=== PATIENT | female | born 1950 | race Caucasian/White ===

== ENCOUNTER 2019-06-01 22:05 | Emergency (ER) | payer MEDICARE, OTHER ==
[~2019-06-01] VITALS: Ht 160 cm; Wt 90.7 kg
--- OUTSIDE RECORDS SUMMARY | 2019-06-01 22:08 | XMS REPORT | Continuity of Care Document ---
Author Author [employer] Address Unknown Phone Unavailable Care Team Providers Care Safety Counselor Name Role Phone [employer] Unavailable Unavailable Problems Problem Status Onset Date Classification Date Reported Comments Source Elevated blood-pressure reading without diagnosis of hypertension Active Problem 05/26/2019 [facility] Meniere's disease Active Problem 05/26/2019 [facility] Fluttering heart Active Problem 05/26/2019 [facility] Hypothyroidism Active Problem 05/26/2019 [facility] Anxiety Active Problem 05/26/2019 [facility] Depression Active Problem 05/26/2019 [facility] Hyperlipidemia Active Problem 05/26/2019 [facility] Prediabetes Active Problem 05/26/2019 [facility] Insomnia Active Problem 05/26/2019 [facility] Abnormal EKG Active Diagnosis 03/12/2017 [facility] BMI 36.0-36.9,adult Active Problem 05/26/2019 [facility] Cough Active Diagnosis 08/07/2018 [facility] Bronchitis Active Diagnosis 08/07/2018 [facility] Hyperlipidemia Active Problem 01/08/2016 [facility] Insomnia Active Problem 01/08/2016 [facility] Hypothyroidism Active Problem 01/08/2016 [facility] Menieres disease Active Problem 07/02/2016 [facility] Obesity Active Diagnosis 06/09/2015 [facility] Encounter for screening mammogram for malignant neoplasm of breast Active Diagnosis 11/23/2014 [facility] Elevated BP Active Problem 07/02/2016 [facility] Prediabetes Active Problem 01/08/2016 [facility] Medications Medication Details Route Status Patient Instructions Ordering Provider Order Date Source Lipitor 1 tablet Orally Active 10 mg Orally Once a day [place] 09/29/2018 [facility] Synthroid 1 tablet on an empty stomach in the morning Orally Active 100 MCG Orally Once a day [place] 09/29/2018 [facility] Bromfed DM 10 ml as needed Orally Active 30-2-10 MG/5ML Orally every 4 hrs [place] 08/10/2018 [facility] Ceftin 1 tablet Orally Active 250 MG Orally Twice a day [place] 07/23/2018 [facility] ProAir HFA 2 puffs as needed Inhalation Active 108 (90 Base) MCG/ACT Inhalation every 6 hrs [place] 07/23/2018 [facility] Valium 1 tablet as needed Orally Active 5 MG Orally Once a day [place] 10/06/2017 [facility] Triamterene-HCTZ 1 tablet in the morning Orally Active 25-37.5 MG Orally Once a day [place] 03/12/2017 [facility] Bentyl 1 capsule Orally Active 10 mg Orally four times a day (qid) Uma 11/13/2015 [facility] Belviq 1 tablet Orally Active 10 mg Orally Twice a day Liz 06/07/2015 [facility] Pravastatin Sodium 1 tablet Orally Active 40 mg Orally Once a day Geovanna 07/05/2014 [facility] Synthroid 1 tablet on an empty stomach in the morning Orally Active 75 MCG Orally Once a day [place] 07/05/2014 [facility] Analpram Advanced as directed Combination Active 2.5-1 % Combination as directed Liz 07/13/2013 [facility] Synthroid 1 tablet Orally No Longer Active 50 MCG Orally Once a day MUST SEE DOCTOR BEFORE NEXT REFILL Geovanna 07/12/2013 [facility] Escitalopram Oxalate 1 tablet by mouth Active 10 mg by mouth Once a day Sai 05/06/2013 [facility] Zolpidem Tartrate ER 1 tablet Orally Active 12.5 MG Orally once every night as needed [facility] Odom 03/15/2013 [facility] Zolpidem Tartrate ER 1 tablet Orally Active 12.5 MG Orally q hs prn LAST REFILL, NEEDS TO BE SEEN Jose Maria 03/15/2013 [facility] Synthroid 1 tablet Orally Active 75 MCG Orally Once a day Sai [facility] Pravastatin Sodium 1 tablet Orally Active 40 mg Orally Once a day Sai [facility] Escitalopram Oxalate 1 tablet orally Active 10 mg orally Once a day Jose Maria [facility] Synthroid 1 tablet Orally Active 75 MCG Orally Once a day Jose Maria [facility] Synthroid 1 tablet on an empty stomach in the morning Orally Active 100 MCG Orally Once a day [place] [facility] Pravastatin Sodium 1 tablet Orally Active 40 mg Orally Once a day Jose Maria [facility] Pravastatin Sodium TAKE 1 TABLET ONCE A DAY ORALLY NA No Longer Active 20 MG Geovanna [facility] Lexapro TAKE 1-2 TABLETS BY MOUTH EVERYDAY NA Active 10 MG Ataartjyothi [facility] Allergies, Adverse Reactions, Alerts Substance Category Reaction Severity Reaction type Status Date Reported Comments Source N.K.D.A. Adverse Reaction Info Not Available Adverse Reaction Active 07/23/2018 [facility] Immunizations No Data Provided for This Section Results No Data Provided for This Section Pathology Reports No Data Provided for This Section Diagnostic Reports No Data Provided for This Section Consultation Notes No Data Provided for This Section Discharge Summaries No Data Provided for This Section History and Physicals No Data Provided for This Section Vital Signs Vital Sign Value Date Comments Source Weight 205 07/23/2018 [facility] Height 63 07/23/2018 [facility] Temperature Oral (F) 98.1 F 07/23/2018 [facility] Heart Rate 76 07/23/2018 [facility] Diastolic (mm Hg) 80 07/23/2018 [facility] Systolic (mm Hg) 126 07/23/2018 [facility] Weight 186 03/10/2017 [facility] Height 63 03/10/2017 [facility] Heart Rate 82 03/10/2017 [facility] Diastolic (mm Hg) 88 03/10/2017 [facility] Systolic (mm Hg) 130 03/10/2017 [facility] Weight 229 03/25/2016 [facility] Height 63 03/25/2016 [facility] Heart Rate 66 03/25/2016 [facility] Diastolic (mm Hg) 70 03/25/2016 [facility] Systolic (mm Hg) 122 03/25/2016 [facility] Weight 222 06/07/2015 [facility] Height 63 06/07/2015 [facility] Heart Rate 64 06/07/2015 [facility] Diastolic (mm Hg) 80 06/07/2015 [facility] Systolic (mm Hg) 126 06/07/2015 [facility] Weight 219 06/21/2014 [facility] Height 63 06/21/2014 [facility] Heart Rate 63 06/21/2014 [facility] Diastolic (mm Hg) 78 06/21/2014 [facility] Systolic (mm Hg) 124 06/21/2014 [facility] Encounters Location Location Details Encounter Type Encounter Number Reason For Visit Attending Provider ADM Date DC Date Status Source [facility] med refill [id number] 06/21/2014 06/21/2014 [facility] med refill [id number] 06/21/2014 06/21/2014 [facility] med refill [id number] 06/21/2014 06/21/2014 [facility] med refill [id number] 06/21/2014 06/21/2014 [facility] med refill [id number] 06/21/2014 06/21/2014 [facility] med refill [id number] 06/21/2014 06/21/2014 [facility] med refill [id number] 06/21/2014 06/21/2014 [facility] med refill [id number] 06/21/2014 06/21/2014 [facility] med refill [id number] 06/21/2014 06/21/2014 [facility] med refill [id number] 06/21/2014 06/21/2014 [facility] med refill [id number] 06/21/2014 06/21/2014 [facility] med refill [id number] 06/21/2014 06/21/2014 [facility] med refill [id number] 06/21/2014 06/21/2014 [facility] med refill [id number] 06/21/2014 06/21/2014 [facility] med refill [id number] 06/21/2014 06/21/2014 [facility] med refill [id number] 06/21/2014 06/21/2014 [facility] Test results [id number] 07/05/2014 07/05/2014 [facility] Test results [id number] 07/05/2014 07/05/2014 [facility] Test results [id number] 07/05/2014 07/05/2014 [facility] Test results [id number] 07/05/2014 07/05/2014 [facility] Test results [id number] 07/05/2014 07/05/2014 [facility] Test results [id number] 07/05/2014 07/05/2014 [facility] Test results [id number] 07/05/2014 07/05/2014 [facility] Test results [id number] 07/05/2014 07/05/2014 [facility] Test results [id number] 07/05/2014 07/05/2014 [facility] Test results [id number] 07/05/2014 07/05/2014 [facility] Test results [id number] 07/05/2014 07/05/2014 [facility] Test results [id number] 07/05/2014 07/05/2014 [facility] Test results [id number] 07/05/2014 07/05/2014 [facility] Test results [id number] 07/05/2014 07/05/2014 [facility] Test results [id number] 07/05/2014 07/05/2014 [facility] Test results [id number] 07/05/2014 07/05/2014 [facility] Unknown [id number] 09/21/2014 09/21/2014 [facility] Unknown [id number] 09/21/2014 09/21/2014 [facility] Unknown [id number] 09/21/2014 09/21/2014 [facility] Unknown [id number] 09/21/2014 09/21/2014 [facility] Unknown [id number] 09/21/2014 09/21/2014 [facility] Unknown [id number] 09/21/2014 09/21/2014 [facility] Unknown [id number] 09/21/2014 09/21/2014 [facility] Unknown [id number] 09/21/2014 09/21/2014 [facility] Unknown [id number] 09/21/2014 09/21/2014 [facility] Unknown [id number] 09/21/2014 09/21/2014 [facility] Unknown [id number] 09/21/2014 09/21/2014 [facility] Unknown [id number] 09/21/2014 09/21/2014 [facility] Unknown [id number] 09/21/2014 09/21/2014 [facility] Unknown [id number] 09/21/2014 09/21/2014 [facility] Unknown [id number] 11/10/2014 11/10/2014 [facility] Unknown [id number] 11/10/2014 11/10/2014 [facility] Unknown [id number] 11/10/2014 11/10/2014 [facility] Unknown [id number] 11/10/2014 11/10/2014 [facility] Unknown [id number] 11/10/2014 11/10/2014 [facility] Unknown [id number] 11/10/2014 11/10/2014 [facility] Unknown [id number] 11/10/2014 11/10/2014 [facility] Unknown [id number] 11/10/2014 11/10/2014 [facility] Unknown [id number] 11/10/2014 11/10/2014 [facility] Unknown [id number] 11/10/2014 11/10/2014 [facility] Unknown [id number] 11/10/2014 11/10/2014 [facility] Unknown [id number] 11/10/2014 11/10/2014 [facility] Unknown [id number] 11/10/2014 11/10/2014 [facility] Refill [id number] 12/19/2014 12/19/2014 [facility] Refill [id number] 12/19/2014 12/19/2014 [facility] Refill [id number] 12/19/2014 12/19/2014 [facility] Refill [id number] 12/19/2014 12/19/2014 [facility] Refill [id number] 12/19/2014 12/19/2014 [facility] Refill [id number] 12/19/2014 12/19/2014 [facility] Refill [id number] 12/19/2014 12/19/2014 [facility] Refill [id number] 12/19/2014 12/19/2014 [facility] Refill [id number] 12/19/2014 12/19/2014 [facility] Refill [id number] 12/19/2014 12/19/2014 [facility] Refill [id number] 12/19/2014 12/19/2014 [facility] Refill [id number] 12/19/2014 12/19/2014 [facility] Unknown [id number] 03/23/2015 03/23/2015 [facility] Unknown [id number] 03/23/2015 03/23/2015 [facility] Unknown [id number] 03/23/2015 03/23/2015 [facility] Unknown [id number] 03/23/2015 03/23/2015 [facility] Unknown [id number] 03/23/2015 03/23/2015 [facility] Unknown [id number] 03/23/2015 03/23/2015 [facility] Unknown [id number] 03/23/2015 03/23/2015 [facility] Unknown [id number] 03/23/2015 03/23/2015 [facility] Unknown [id number] 03/23/2015 03/23/2015 [facility] Unknown [id number] 03/23/2015 03/23/2015 [facility] Unknown [id number] 03/23/2015 03/23/2015 [facility] med refill [id number] 06/07/2015 06/07/2015 [facility] med refill [id number] 06/07/2015 06/07/2015 [facility] med refill [id number] 06/07/2015 06/07/2015 [facility] med refill [id number] 06/07/2015 06/07/2015 [facility] med refill [id number] 06/07/2015 06/07/2015 [facility] med refill [id number] 06/07/2015 06/07/2015 [facility] med refill [id number] 06/07/2015 06/07/2015 [facility] med refill [id number] 06/07/2015 06/07/2015 [facility] [facility] med refill [id number] 06/07/2015 06/07/2015 [facility] med refill [id number] 06/07/2015 06/07/2015 [facility] med refill [id number] 06/07/2015 06/07/2015 [facility] Refill [id number] 06/18/2015 06/18/2015 [facility] Refill [id number] 06/18/2015 06/18/2015 [facility] Refill [id number] 06/18/2015 06/18/2015 [facility] Refill [id number] 06/18/2015 06/18/2015 [facility] Refill [id number] 06/18/2015 06/18/2015 [facility] Refill [id number] 06/18/2015 06/18/2015 [facility] Refill [id number] 06/18/2015 06/18/2015 [facility] Refill [id number] 06/18/2015 06/18/2015 [facility] Refill [id number] 06/18/2015 06/18/2015 [facility] Refill [id number] 06/18/2015 06/18/2015 [facility] LAB RESULTS [id number] 08/13/2015 08/13/2015 [facility] LAB RESULTS [id number] 08/13/2015 08/13/2015 [facility] LAB RESULTS [id number] 08/13/2015 08/13/2015 [facility] LAB RESULTS [id number] 08/13/2015 08/13/2015 [facility] LAB RESULTS [id number] 08/13/2015 08/13/2015 [facility] LAB RESULTS [id number] 08/13/2015 08/13/2015 [facility] LAB RESULTS [id number] 08/13/2015 08/13/2015 [facility] LAB RESULTS [id number] 08/13/2015 08/13/2015 [facility] LAB RESULTS [id number] 08/13/2015 08/13/2015 [facility] Refill [id number] 08/14/2015 08/14/2015 [facility] Refill [id number] 08/14/2015 08/14/2015 [facility] Refill [id number] 08/14/2015 08/14/2015 [facility] Refill [id number] 08/14/2015 08/14/2015 [facility] Refill [id number] 08/14/2015 08/14/2015 [facility] Refill [id number] 08/14/2015 08/14/2015 [facility] Refill [id number] 08/14/2015 08/14/2015 [facility] Refill [id number] 08/14/2015 08/14/2015 [facility] Refill [id number] 08/14/2015 08/14/2015 [facility] Unknown [id number] 08/14/2015 08/14/2015 [facility] Unknown [id number] 08/14/2015 08/14/2015 [facility] Unknown [id number] 08/14/2015 08/14/2015 [facility] Unknown [id number] 08/14/2015 08/14/2015 [facility] Unknown [id number] 08/14/2015 08/14/2015 [facility] Unknown [id number] 08/14/2015 08/14/2015 [facility] Unknown [id number] 08/14/2015 08/14/2015 [facility] Unknown [id number] 08/14/2015 08/14/2015 [facility] Unknown [id number] 08/14/2015 08/14/2015 [facility] HOYT (KELLY)-UA [id number] 08/23/2015 08/23/2015 [facility] NATHAN)-UA [id number] 08/23/2015 08/23/2015 [facility] NATHAN)-UA [id number] 08/23/2015 08/23/2015 [facility] NATHAN)-UA [id number] 08/23/2015 08/23/2015 [facility] NATHAN)-UA [id number] 08/23/2015 08/23/2015 [facility] NATHAN)-UA [id number] 08/23/2015 08/23/2015 [facility] NATHAN)-UA [id number] 08/23/2015 08/23/2015 [facility] NATHAN)-UA [id number] 08/23/2015 08/23/2015 [facility] NATHAN)-UA [id number] 08/23/2015 08/23/2015 [facility] Refill [id number] 09/10/2015 09/10/2015 [facility] Refill [id number] 09/10/2015 09/10/2015 [facility] Refill [id number] 09/10/2015 09/10/2015 [facility] Refill [id number] 09/10/2015 09/10/2015 [facility] Refill [id number] 09/10/2015 09/10/2015 [facility] Refill [id number] 09/10/2015 09/10/2015 [facility] Refill [id number] 09/10/2015 09/10/2015 [facility] Refill [id number] 09/10/2015 09/10/2015 [facility] Refill [id number] 09/10/2015 09/10/2015 [facility] Unknown [id number] 09/11/2015 09/11/2015 [facility] Unknown [id number] 09/11/2015 09/11/2015 [facility] Unknown [id number] 09/11/2015 09/11/2015 [facility] Unknown [id number] 09/11/2015 09/11/2015 [facility] Unknown [id number] 09/11/2015 09/11/2015 [facility] Unknown [id number] 09/11/2015 09/11/2015 [facility] Unknown [id number] 09/11/2015 09/11/2015 [facility] Unknown [id number] 09/11/2015 09/11/2015 [facility] Unknown [id number] 09/11/2015 09/11/2015 [facility] Unknown [id number] 10/08/2015 10/08/2015 [facility] Unknown [id number] 10/08/2015 10/08/2015 [facility] Unknown [id number] 10/08/2015 10/08/2015 [facility] Unknown [id number] 10/08/2015 10/08/2015 [facility] Unknown [id number] 10/08/2015 10/08/2015 [facility] Unknown [id number] 10/08/2015 10/08/2015 [facility] Unknown [id number] 10/08/2015 10/08/2015 [facility] Unknown [id number] 10/08/2015 10/08/2015 [facility] Unknown [id number] 10/08/2015 10/08/2015 [facility] Unknown [id number] 10/09/2015 10/09/2015 [facility] Unknown [id number] 10/09/2015 10/09/2015 [facility] Unknown [id number] 10/09/2015 10/09/2015 [facility] Unknown [id number] 10/09/2015 10/09/2015 [facility] Unknown [id number] 10/09/2015 10/09/2015 [facility] Unknown [id number] 10/09/2015 10/09/2015 [facility] Unknown [id number] 10/09/2015 10/09/2015 [facility] Unknown [id number] 10/09/2015 10/09/2015 [facility] Unknown [id number] 10/09/2015 10/09/2015 [facility] Unknown [id number] 11/13/2015 11/13/2015 [facility] Unknown [id number] 11/13/2015 11/13/2015 [facility] Unknown [id number] 11/13/2015 11/13/2015 [facility] Unknown [id number] 11/13/2015 11/13/2015 [facility] Unknown [id number] 11/13/2015 11/13/2015 [facility] Unknown [id number] 11/13/2015 11/13/2015 [facility] Unknown [id number] 11/13/2015 11/13/2015 [facility] [place] [id number] 01/07/2016 01/07/2016 [facility] [id number] 01/07/2016 01/07/2016 [facility] [id number] 01/07/2016 01/07/2016 [facility] [id number] 01/07/2016 01/07/2016 [facility] [id number] 01/07/2016 01/07/2016 [facility] [id number] 01/07/2016 01/07/2016 [facility] medication [id number] 03/25/2016 03/25/2016 [facility] medication [id number] 03/25/2016 03/25/2016 [facility] medication [id number] 03/25/2016 03/25/2016 [facility] medication [id number] 03/25/2016 03/25/2016 [facility] medication [id number] 03/25/2016 03/25/2016 [facility] APPROVED- Rx Escitalopram 10 mg [id number] 04/18/2016 04/18/2016 [facility]- Rx Escitalopram 10 mg [id number] 04/18/2016 04/18/2016 [facility]- Rx Escitalopram 10 mg [id number] 04/18/2016 04/18/2016 [facility]- Rx Escitalopram 10 mg [id number] 04/18/2016 04/18/2016 [facility] Refill [id number] 06/19/2016 06/19/2016 [facility] Refill [id number] 06/19/2016 06/19/2016 [facility] Refill [id number] 06/19/2016 06/19/2016 [facility] Refill [id number] 06/24/2016 06/24/2016 [facility] Refill [id number] 06/24/2016 06/24/2016 [facility] Rx Zolpidem [id number] 06/30/2016 06/30/2016 [facility] Procedures No Data Provided for This Section Assessment and Plan No Data Provided for This Section Plan of Care No Data Provided for This Section Social History Social History Date Source Social History ElementQualifiersDate Reported Occupation: . Retired March 25, 2016 Last Colonoscopy: . never March 25, 2016 Depression Screening: . negative March 25, 2016 Ethnicity . Status , Is cymro your primary language? Yes March 25, 2016 Fall Risk: . none in the past year March 25, 2016 Where or with whom do you live ? . with Spouse March 25, 2016 children . 2 March 25, 2016 Flu Vaccine: . no March 25, 2016 Tobacco Use: . Are you a: never smoker March 25, 2016 Use of recreational / street drugs? . Answer: No March 25, 2016 Marital Status: . Matt March 25, 2016 Last Bone Density: . 2011 March 25, 2016 Pneumoccocal Vaccine . No March 25, 2016 Do you drink alcohol? . Status: No March 25, 2016 03/25/2016 [facility] Family History Value Date Source QualifierDescriptionCommentDate Reported Maternal Grandmother Comment not available March 25, 2016 Paternal Grandmother Comment not available March 25, 2016 Siblings alive Comment not available March 25, 2016 Maternal Grandfather Comment not available March 25, 2016 Children alive Comment not available March 25, 2016 Father alive hypertension, myocardial infarction March 25, 2016 Paternal Grandfather Comment not available March 25, 2016 Mother hypertension, myocardial infarction March 25, 2016 Other: Comment not available March 25, 2016 04/01/2016 [facility] Advance Directives No Data Provided for This Section Functional Status No Data Provided for This Section
--- OUTSIDE RECORDS SUMMARY | 2019-06-01 22:09 | XMS REPORT ---
Author Author Carina Longo Organization [employer] Address Unknown Phone Unavailable Care Team Providers Care Station Supervisor Name Role Phone Carina Longo CP Unavailable Allergies No Known Allergies Problems Problem Type Condition Code Onset Dates Condition Status Problem Meniere's disease H81.09 Active Problem Hyperlipidemia E78.5 Active Problem Elevated blood-pressure reading without diagnosis of hypertension R03.0 Active Problem Fluttering heart I49.8 Active Problem Anxiety F41.9 Active Problem BMI 36.0-36.9,adult Z68.36 Active Problem Insomnia G47.00 Active Problem Hypothyroidism E03.9 Active Problem Prediabetes R73.09 Active Problem Depression F32.9 Active Medications Medication Code System Code Instructions Start Date End Date Status Dosage Synthroid [facility] 80675005028 100 MCG Orally Once a day Active 1 tablet on an empty stomach in the morning Results No Known Results Summary Purpose [employer] Submission
--- OUTSIDE RECORDS SUMMARY | 2019-06-01 22:09 | XMS REPORT ---
Author Author Carina Longo [facility] [employer] Address Unknown Phone Unavailable Care Team Providers Care Ground Support Equipment Assembler Name Role Phone Carina Longo CP Unavailable Allergies No Known Allergies Problems Problem Type Condition Code Onset Dates Condition Status Problem Elevated blood-pressure reading without diagnosis of hypertension R03.0 Active Problem Meniere's disease H81.09 Active Problem Fluttering heart I49.8 Active Problem Depression F32.9 Active Problem Anxiety F41.9 Active Problem Prediabetes R73.09 Active Problem Hyperlipidemia E78.5 Active Problem Insomnia G47.00 Active Problem Hypothyroidism E03.9 Active Medications Medication Code System Code Instructions Start Date End Date Status Dosage Valium [facility] [id number] 5 MG Orally Once a day Oct 06, 2017 Active 1 tablet as needed Results No Known Results Summary Purpose [employer] Submission
--- OUTSIDE RECORDS SUMMARY | 2019-06-01 22:09 | XMS REPORT ---
Author Author Mitch Moise Organization eClinicalWorks Address Unknown Phone Unavailable Care Team Providers Care Wireline Operator Name Role Phone Mitch Moise CP Unavailable Allergies No Known Allergies Problems Problem Type Condition Code Onset Dates Condition Status Problem Meniere's disease H81.09 Active Problem Hyperlipidemia E78.5 Active Problem Elevated blood-pressure reading without diagnosis of hypertension R03.0 Active Assessment Insomnia G47.00 Active Problem Fluttering heart I49.8 Active Problem Anxiety F41.9 Active Problem BMI 36.0-36.9,adult Z68.36 Active Problem Insomnia G47.00 Active Problem Hypothyroidism E03.9 Active Problem Prediabetes R73.09 Active Problem Depression F32.9 Active Medications Medication Code System Code Instructions Start Date End Date Status Dosage Zolpidem Tartrate ER [facility] 31329468645 12.5 MG Orally Once a day PRN March 15, 2013 Active 1 tablet Results No Known Results Summary Purpose eClinicalWorks Submission
--- OUTSIDE RECORDS SUMMARY | 2019-06-01 22:09 | XMS REPORT ---
Author Author Carina Longo [facility] eClinicalWorks Address Unknown Phone Unavailable Care Team Providers Care Adding Machine Mechanic Name Role Phone Carina Lnogo CP Unavailable Allergies No Known Allergies Problems Problem Type Condition Code Onset Dates Condition Status Assessment Insomnia G47.00 Active Problem Elevated blood-pressure reading without diagnosis of hypertension R03.0 Active Problem Meniere's disease H81.09 Active Problem Fluttering heart I49.8 Active Problem Depression F32.9 Active Problem Anxiety F41.9 Active Problem Prediabetes R73.09 Active Problem Hyperlipidemia E78.5 Active Problem Insomnia G47.00 Active Problem Hypothyroidism E03.9 Active Medications Medication Code System Code Instructions Start Date End Date Status Dosage Zolpidem Tartrate ER [facility] 56655929442 12.5 MG Orally qhs prn LAST REFILL, MUST SEE DOCTOR March 15, 2013 Active 1 tablet Results No Known Results Summary Purpose eClinicalWorks Submission
--- OUTSIDE RECORDS SUMMARY | 2019-06-01 22:09 | XMS REPORT ---
Author Author Carina Longo [facility] eClinicalWorks Address Unknown Phone Unavailable Care Team Providers Care Meteorology Instructor Name Role Phone Carina Longo CP Unavailable [...] G47.00 Active Problem Hypothyroidism E03.9 Active Medications No Known Medications Results No Known Results Summary Purpose eClinicalWorks Submission
--- OUTSIDE RECORDS SUMMARY | 2019-06-01 22:09 | XMS REPORT ---
Author Author Jami Gibbs [facility] eClinicalWorks Address Unknown Phone Unavailable Care Team Providers Care Splitting Machine Operator Helper Name Role Phone Jami Gibbs CP Unavailable Allergies No Known Allergies Problems Problem Type Condition Code Onset Dates Condition Status Problem Elevated blood-pressure reading without diagnosis of hypertension R03.0 Active Problem Meniere's disease H81.09 Active Problem Fluttering heart I49.8 Active Problem Hypothyroidism E03.9 Active Problem Anxiety F41.9 Active Problem Depression F32.9 Active Problem Hyperlipidemia E78.5 Active Problem Prediabetes R73.09 Active Problem Insomnia G47.00 Active Medications No Known Medications Results No Known Results Summary Purpose eClinicalWorks Submission
--- OUTSIDE RECORDS SUMMARY | 2019-06-01 22:09 | XMS REPORT ---
Author Author Carina Longo [facility] eClinicalWorks Address Unknown Phone Unavailable Care Team Providers Care Supervisor Cigarette Making Department Name Role Phone Carina Longo CP Unavailable [...] Instructions Start Date End Date Status Dosage Escitalopram Oxalate [facility] 24585776262 10 mg orally Once a day Active 1 tablet Results No Known Results Summary Purpose eClinicalWorks Submission
--- OUTSIDE RECORDS SUMMARY | 2019-06-01 22:09 | XMS REPORT ---
Author Author Carina Longo [facility] eClinicalWorks Address Unknown Phone Unavailable Care Team Providers Care Veterinary Anatomist Name Role Phone Carina Longo CP Unavailable Allergies No Known Allergies Problems Problem Type Condition Code Onset Dates Condition Status Assessment Hypothyroidism E03.9 Active Problem Elevated blood-pressure reading without diagnosis of hypertension R03.0 Active Problem Meniere's disease H81.09 Active Problem Fluttering heart I49.8 Active Problem Depression F32.9 Active Problem Anxiety F41.9 Active Problem Prediabetes R73.09 Active Problem Hyperlipidemia E78.5 Active Problem Insomnia G47.00 Active Problem Hypothyroidism E03.9 Active Medications Medication Code System Code Instructions Start Date End Date Status Dosage Synthroid [facility] 39151343926 75 MCG Orally Once a day Active 1 tablet Results No Known Results Summary Purpose eClinicalWorks Submission
--- OUTSIDE RECORDS SUMMARY | 2019-06-01 22:09 | XMS REPORT ---
Author Author Carina Longo [facility] eClinicalWorks Address Unknown Phone Unavailable Care Team Providers Care Elementary Spanish Teacher Name Role Phone Carina Longo CP Unavailable [...] R73.09 Active Problem Insomnia G47.00 Active Medications Medication Code System Code Instructions Start Date End Date Status Dosage Zolpidem Tartrate [facility] [address]-17 12.5 MG Orally once every night as needed March 15, 2013 Active 1 tablet Results No Known Results Summary Purpose eClinicalWorks Submission
--- OUTSIDE RECORDS SUMMARY | 2019-06-01 22:09 | XMS REPORT ---
Author Author Jami Gibbs [facility] eClinicalWorks Address Unknown Phone Unavailable Care Team Providers Care Cement Side Laster Name Role Phone Jami Gibbs CP Unavailable [...] Instructions Start Date End Date Status Dosage Triamterene-HCTZ [facility] [address]-29 25-37.5 MG Orally Once a day March 12, 2017 Active 1 tablet in the morning Results No Known Results Summary Purpose eClinicalWorks Submission
--- OUTSIDE RECORDS SUMMARY | 2019-06-01 22:09 | XMS REPORT ---
Author Author Jami Gibbs [facility] eClinicalWorks Address Unknown Phone Unavailable Care Team Providers Care Insole Presser Name Role Phone Jami Gibbs CP Unavailable [...] Start Date End Date Status Dosage Triamterene-HCTZ [facility] [address]-16 25-37.5 MG Orally Once a day March 12, 2017 Active 1 tablet in the morning Results No Known Results Summary Purpose eClinicalWorks Submission
--- OUTSIDE RECORDS SUMMARY | 2019-06-01 22:09 | XMS REPORT ---
Author Author Mitch Moise Organization eClinicalWorks Address Unknown Phone Unavailable Care Team Providers Care Research Manager Name Role Phone Mitch Moise CP Unavailable [...] Instructions Start Date End Date Status Dosage Lipitor [facility] 30631491080 10 mg Orally Once a day Sep 29, 2018 Active 1 tablet Results No Known Results Summary Purpose eClinicalWorks Submission
--- OUTSIDE RECORDS SUMMARY | 2019-06-01 22:10 | XMS REPORT ---
Author Author Mitch Moise [facility] eClinicalWorks Address Unknown Phone Unavailable Care Team Providers Care Food Order Delivery Runner Name Role Phone Mitch Moise CP Unavailable Encounters Encounter Location Date Unknown [facility] Nov 10, 2014 Refill [facility] Dec 19, 2014 Unknown [facility] March 23, 2015 med refill [facility] June 07, 2015 med refill [facility] June 21, 2014 Test results [facility] Jul 05, 2014 Unknown [facility] Sep 21, 2014 Refill [facility] Aug 14, 2015 Refill [facility] June 18, 2015 LAB RESULTS [facility] Aug 13, 2015 Unknown [facility] Nov 13, 2015 RF [facility] Jan 07, 2016 Unknown [facility] Oct 08, 2015 Unknown [facility] Oct 09, 2015 Unknown [facility] Sep 11, 2015 Refill [facility] Sep 10, 2015 Unknown [facility] Aug 14, 2015 NV(VANGIE)-UA [facility] Aug 23, 2015 Problems Problem Type Condition ICD-9 Code Onset Dates Condition Status Problem Elevated BP 796.2 Active Problem Hypothyroidism 244.9 Active Problem Hyperlipidemia E78.5 Active Problem Menieres disease 386.00 Active Problem Prediabetes 790.29 Active Problem Hyperlipidemia 272.4 Active Problem Insomnia 780.52 Active Medications Medication Code System Code Instructions Start Date End Date Status Dosage Escitalopram Oxalate [facility] [address]-58 10 mg by mouth Once a day May 06, 2013 Active take 1-2 tablet by mouth every day Zolpidem Tartrate ER [facility] [address]-53 12.5 MG Orally once every night as needed March 15, 2013 Active 1 tablet Social History Social History Element Qualifiers Date Reported Occupation: . Retired Aug 23, 2015 Last Colonoscopy: . never Aug 23, 2015 Depression Screening: . negative 06/07/15 Aug 23, 2015 Ethnicity . Status , Is solomon islander your primary language? Yes Aug 23, 2015 Fall Risk: . none in the past year Aug 23, 2015 Where or with whom do you live ? . with Spouse Aug 23, 2015 children . 2 Aug 23, 2015 Flu Vaccine: . no Aug 23, 2015 Tobacco Use: . Are you a: never smoker Aug 23, 2015 Use of recreational / street drugs? . Answer: No Aug 23, 2015 Marital Status: . Matt Aug 23, 2015 Last Bone Density: . 2010Aug 23, 2015 Pneumoccocal Vaccine . No Aug 23, 2015 Do you drink alcohol? . Status: No Aug 23, 2015 Summary Purpose eClinicalWorks Submission
--- OUTSIDE RECORDS SUMMARY | 2019-06-01 22:10 | XMS REPORT ---
Author Author Raymond Hill Organization eClinicalWorks Address Unknown Phone Unavailable Care Team Providers Care Regional Forester Name Role Phone Raymond Hill CP Unavailable Encounters Encounter Location Date Unknown [facility] Nov 10, 2014 Refill [facility] Dec 19, 2014 med refill [facility] June 21, 2014 Test results [facility] Jul 05, 2014 Unknown [facility] Sep 21, 2014 Social History Social History Element Qualifiers Date Reported Ethnicity . Status , Is scottish your primary language? Yes June 21, 2014 Where or with whom do you live ? . with Spouse June 21, 2014 children . 2 June 21, 2014 Tobacco Use: . Are you a: never smoker June 21, 2014 Use of recreational / street drugs? . Answer: No June 21, 2014 Marital Status: . Matt June 21, 2014 Do you drink alcohol? . Status: No June 21, 2014 Occupation: . Retired June 21, 2014 Summary Purpose eClinicalWorks Submission
--- OUTSIDE RECORDS SUMMARY | 2019-06-01 22:10 | XMS REPORT ---
Author Author Raghavendra Finney [facility] eClinicalWorks Address Unknown Phone Unavailable Care Team Providers Care Geochemical Laboratory Technician Name Role Phone Raghavendra Finney Unavailable Encounters Encounter Location Date Unknown [facility] Nov 10, 2014 med refill [facility] June 21, 2014 Test results [facility] Jul 05, 2014 Unknown [facility] Sep 21, 2014 Problems Problem Type Condition ICD-9 Code Onset Dates Condition Status Problem Hyperlipidemia 272.4 Active Problem Insomnia 780.52 Active Problem Hypothyroidism 244.9 Active Problem Menieres disease 386.00 Active Assessment Encounter for screening mammogram for malignant neoplasm of breast V76.12 Active Social History Social History Element Qualifiers Date Reported Ethnicity . Status , Is armenian your primary language? Yes June 21, 2014 [...]
--- OUTSIDE RECORDS SUMMARY | 2019-06-01 22:10 | XMS REPORT ---
Author Author Mitch Moise Organization eClinicalWorks Address Unknown Phone Unavailable Care Team Providers Care Repair Tech Name Role Phone Mitch Moise CP Unavailable Allergies No Known Allergies Problems Problem Type Condition Code Onset Dates Condition Status Problem Meniere's disease H81.09 Active Problem Hyperlipidemia E78.5 Active Problem Elevated blood-pressure reading without diagnosis of hypertension R03.0 Active Assessment Hyperlipidemia E78.5 Active Assessment Hypothyroidism E03.9 Active Problem Fluttering heart I49.8 Active Problem Anxiety F41.9 Active Problem BMI 36.0-36.9,adult Z68.36 Active Problem Insomnia G47.00 Active Problem Hypothyroidism E03.9 Active Problem Prediabetes R73.09 Active Problem Depression F32.9 Active Medications Medication Code System Code Instructions Start Date End Date Status Dosage Synthroid NDC 03190815836 100 MCG Orally Once a day Sep 29, 2018 Active 1 tablet on an empty stomach in the morning Lipitor ND 19278982076 10 mg Orally Once a day Sep 29, 2018 Active 1 tablet Synthroid NDC 63703639883 75 MCG Orally Once a day Inactive 1 tablet Results No Known Results Summary Purpose eClinicalWorks Submission
--- OUTSIDE RECORDS SUMMARY | 2019-06-01 22:10 | XMS REPORT ---
Author Author Mitch Moise Organization eClinicalWorks Address Unknown Phone Unavailable Care Team Providers Care Inpatient Services Director Name Role Phone Mitch Moise CP Unavailable [...] End Date Status Dosage Zolpidem Tartrate ER [facility] 99548208009 12.5 MG Orally q hs prn LAST REFILL, NEEDS TO BE SEEN March 15, 2013 Active 1 tablet Results No Known Results Summary Purpose eClinicalWorks Submission
--- OUTSIDE RECORDS SUMMARY | 2019-06-01 22:10 | XMS REPORT ---
Author Author Raymond Hill [facility] eClinicalWorks Address Unknown Phone Unavailable Care Team Providers Care Blower And Compressor Assembler Name Role Phone Raymond Hill CP Unavailable Allergies, Adverse Reactions, Alerts Substance Reaction Event Type N.K.D.A. Info Not Available Non Drug Allergy Encounters Encounter Location Date Unknown [facility] Nov 10, 2014 Refill [facility] Dec 19, 2014 Unknown [facility] March 23, 2015 med refill [facility] June 07, 2015 med refill [facility] June 21, 2014 Test results [facility] Jul 05, 2014 Unknown [facility] Sep 21, 2014 Problems Problem Type Condition ICD-9 Code Onset Dates Condition Status Assessment Obesity 278.00 Active Problem Hyperlipidemia 272.4 Active Problem Insomnia 780.52 Active Problem Hypothyroidism 244.9 Active Assessment Hypothyroidism 244.9 Active Assessment Insomnia 780.52 Active Problem Menieres disease 386.00 Active Assessment Hyperlipidemia 272.4 Active Medications Medication Code System Code Instructions Start Date End Date Status Dosage Analpram Advanced [facility] [address]-45 2.5-1 % Combination as directed Jul 13, 2013 Active as directed [facility] [address]-94 75 MCG Orally Once a day (must see doctor before next refill) Active 1 tablet Escitalopram Oxalate [facility] [address]-16 10 mg by mouth Once a day May 06, 2013 Active take 1-2 tablet by mouth every day Lexapro [facility] [address]-51 10 MG Active TAKE 1-2 TABLETS BY MOUTH EVERYDAY Zolpidem Tartrate ER [facility] [address]-72 12.5 MG Orally once every night as needed March 15, 2013 Active 1 tablet Belviq [facility] [address]-77 10 mg Orally Twice a day June 07, 2015 Sep 05, 2015 Active 1 tablet Pravastatin Sodium [facility] [address]-04 40 mg Orally Once a day (must see doctor before next refill) Active 1 tablet Social History Social History Element Qualifiers Date Reported Occupation: . Retired June 07, 2015 Last Colonoscopy: . never June 07, 2015 Depression Screening: . negative 06/07/15 June 07, 2015 Ethnicity . Status , Is georgian your primary language? Yes June 07, 2015 Fall Risk: . none in the past year June 07, 2015 Where or with whom do you live ? . with Spouse June 07, 2015 children . 2 June 07, 2015 Flu Vaccine: . no June 07, 2015 Tobacco Use: . Are you a: never smoker June 07, 2015 Use of recreational / street drugs? . Answer: No June 07, 2015 Marital Status: . Matt June 07, 2015 Last Bone Density: . 2010June 07, 2015 Pneumoccocal Vaccine . No June 07, 2015 Do you drink alcohol? . Status: No June 07, 2015 Vital Signs Date/Time: June 07, 2015 Weight 222 lbs Height 63 in Cardiac Monitoring Heart Rate 64 /min Blood Pressure Diastolic 80 mm Hg Blood Pressure Systolic 126 mm Hg Summary Purpose eClinicalWorks Submission
--- OUTSIDE RECORDS SUMMARY | 2019-06-01 22:10 | XMS REPORT ---
Author Author Mitch Moise Organization eClinicalWorks Address Unknown Phone Unavailable Care Team Providers Care Showroom Manager Name Role Phone Mitch Moise CP [...] End Date Status Dosage Zolpidem Tartrate ER [facility] 37121322288 12.5 MG Orally q hs prn March 15, 2013 Active 1 tablet Results No Known Results Summary Purpose eClinicalWorks Submission
--- OUTSIDE RECORDS SUMMARY | 2019-06-01 22:10 | XMS REPORT ---
Author Raymond William [facility] eClinicalWorks Address Unknown Phone Unavailable Care Team Providers Care Material Control Associate Name Role Phone Raymond Hill CP Unavailable Encounters Encounter Location Date Unknown [facility] Nov 10, [address] [facility] Dec 19, 2014 Unknown [facility] March 23, 2015 med refill [facility] June 07, 2015 med refill [facility] June 21, 2014 Test results [facility] Jul 05, 2014 Unknown [facility] Sep 21, 2014 Refill [facility] June 18, 2015 Problems Problem Type Condition ICD-9 Code Onset Dates Condition Status Problem Hyperlipidemia 272.4 Active Problem Insomnia 780.52 Active Problem Hypothyroidism 244.9 Active Problem Menieres disease 386.00 Active Medications Medication Code System Code Instructions Start Date End Date Status Dosage [facility] [address]-91 10 mg by mouth Once a day May 06, 2013 Active take 1-2 tablet by mouth every day Zolpidem Tartrate [facility] [address]-85 12.5 MG Orally once every night as needed March 15, 2013 Active 1 tablet Pravastatin Sodium [facility] [address]-76 40 mg Orally Once a day Active 1 tablet Synthroid [facility] [address]-60 75 MCG Orally Once a day Active 1 tablet Social History Social History Element Qualifiers Date Reported Occupation: . Retired June 07, 2015 Last Colonoscopy: . never June 07, 2015 Depression Screening: . negative 06/07/15 June 07, 2015 Ethnicity . Status , Is azeri your primary language? Yes June 07, 2015 [...] alcohol? . Status: No June 07, 2015 Summary Purpose eClinicalWorks Submission
--- OUTSIDE RECORDS SUMMARY | 2019-06-01 22:10 | XMS REPORT ---
Author Author Mitch Moise Organization eClinicalWorks Address Unknown Phone Unavailable Care Team Providers Care Product Development Scientist Name Role Phone Mitch Moise CP Unavailable [...] Instructions Start Date End Date Status Dosage Bromfed DM [facility] 22864485452 30-2-10 MG/5ML Orally every 4 hrs Aug 10, 2018 Aug 17, 2018 Active 10 ml as needed Results No Known Results Summary Purpose eClinicalWorks Submission
--- OUTSIDE RECORDS SUMMARY | 2019-06-01 22:10 | XMS REPORT ---
Author Author Raymond Hill Organization eClinicalWorks Address Unknown Phone Unavailable Care Team Providers Care Home Coordinator Name Role Phone Raymond Hill CP Unavailable Allergies, Adverse Reactions, Alerts Substance Reaction Event Type N.K.D.A. Info Not Available Non Drug Allergy Encounters Encounter Location Date med refill [facility] June 21, 2014 Test results [facility] Jul 05, 2014 Problems Problem Type Condition ICD-9 Code Onset Dates Condition Status Assessment Hyperlipidemia 272.4 Active Problem Hyperlipidemia 272.4 Active Problem Insomnia 780.52 Active Problem Hypothyroidism 244.9 Active Assessment Menieres disease 386.00 Active Assessment Hypothyroidism 244.9 Active Problem Menieres disease 386.00 Active Assessment Insomnia 780.52 Active Medications Medication Code System Code Instructions Start Date End Date Status Dosage Analpram Advanced [facility] [address]-39 2.5-1 % Combination as directed Jul 13, 2013 Active as directed Synthroid [facility] [address]-15 50 MCG Orally Once a day MUST SEE DOCTOR BEFORE NEXT REFILL Jul 12, 2013 Active 1 tablet [facility] [address]-72 12.5 MG Orally Once a day March 15, 2013 Active 1 tablet at bedtime as needed Escitalopram Oxalate [facility] [address]-37 10 mg by mouth Once a day May 06, 2013 Active take 1-2 tablet by mouth every day Pravastatin Sodium [facility] [address]-43 20 MG Active TAKE 1 TABLET ONCE A DAY ORALLY Social History Social History Element Qualifiers Date Reported Ethnicity . Status , Is tanzanian your primary language? Yes June 21, 2014 [...] 2014 Occupation: . Retired June 21, 2014 Vital Signs Date/Time: June 21, 2014 Weight 219 lbs Height 63 in Cardiac Monitoring Heart Rate 63 /min Blood Pressure Diastolic 78 mm Hg Blood Pressure Systolic 124 mm Hg Results VITAMIN D, 1,25 DIHYDROXY LC/MS/MS VITAMIN D2, 1,25 (OH)2(- pg/mL) <8 VITAMIN D, 1,25 (OH)2, TOTAL(-18-72 pg/mL) 40 VITAMIN D3, 1,25 (OH)2(- pg/mL) 40 HEMOGLOBIN A1c HEMOGLOBIN A1c(-<5.7 % of total Hgb) 6.1 CBC Platelets(- ) 263 NEUTROPHILS(- ) MID-0.9,GRA4.9 MCHC(- ) 32.9 MCH(- ) 30.2 MCV(- ) 91.6 WBC(- ) 8.5 RDW(- ) 14.4 RBC(- ) 4.44 Hemoglobin(- ) 13.4 Hematocrit(- ) 40.7 COMPREHENSIVE METABOLIC PANEL SODIUM(-135-146 mmol/L) 139 BUN/CREATININE RATIO(-6-22 (calc)) NOT APPLICABLE CHLORIDE(-98-110 mmol/L) 106 POTASSIUM(-3.5-5.3 mmol/L) 4.1 CALCIUM(-8.6-10.4 mg/dL) 9.6 PROTEIN, TOTAL(-6.1-8.1 g/dL) 7.1 CARBON DIOXIDE(-19-30 mmol/L) 26 ALBUMIN/GLOBULIN RATIO(-1.0-2.5 (calc)) 1.4 eGFR NON-AFR. IRANIAN(-> OR=60 mL/min/1.73m2) 69 BILIRUBIN, TOTAL(-0.2-1.2 mg/dL) 0.3 eGFR (-> OR=60 mL/min/1.73m2) 80 UREA NITROGEN (BUN)(-7-25 mg/dL) 8 ALBUMIN(-3.6-5.1 g/dL) 4.1 GLOBULIN(-1.9-3.7 g/dL (calc)) 3.0 CREATININE(-0.50-0.99 mg/dL) 0.89 ALT(-6-29 U/L) 14 GLUCOSE(-65-99 mg/dL) 92 ALKALINE PHOSPHATASE(-33-130 U/L) 83 AST(-10-35 U/L) 13 TSH TSH(-0.40-4.50 mIU/L) 8.93 URINALYSIS, COMPLETE OCCULT BLOOD(-NEGATIVE ) NEGATIVE KETONES(-NEGATIVE ) NEGATIVE BILIRUBIN(-NEGATIVE ) NEGATIVE GLUCOSE(-NEGATIVE ) NEGATIVE PH(-5.0-8.0 ) 5.0 SPECIFIC GRAVITY(-1.001-1.035 ) 1.010 APPEARANCE(-CLEAR ) CLEAR COLOR(-YELLOW ) YELLOW SQUAMOUS EPITHELIAL CELLS(-< OR=5 /HPF) NONE SEEN BACTERIA(-NONE SEEN /HPF) NONE SEEN HYALINE CAST(-NONE SEEN /LPF) NONE SEEN NITRITE(-NEGATIVE ) NEGATIVE LEUKOCYTE ESTERASE(-NEGATIVE ) NEGATIVE WBC(-< OR=5 /HPF) NONE SEEN RBC(-< OR=3 /HPF) NONE SEEN PROTEIN(-NEGATIVE ) NEGATIVE LIPID PANEL TRIGLYCERIDES(-<150 mg/dL) 138 HDL CHOLESTEROL(-> OR=46 mg/dL) 56 CHOL/HDLC RATIO(-< OR=5.0 (calc)) 4.8 LDL-CHOLESTEROL(-<130 mg/dL (calc)) 185 NON HDL CHOLESTEROL(- mg/dL (calc)) 213 CHOLESTEROL, TOTAL(-125-200 mg/dL) 269 Summary Purpose eClinicalWorks Submission
--- OUTSIDE RECORDS SUMMARY | 2019-06-01 22:10 | XMS REPORT ---
Author Author Mitch Moise Organization [employer] Address Unknown Phone Unavailable Care Team Providers Care French Translator Name Role Phone Mitch Moise CP Unavailable Allergies, Adverse Reactions, Alerts Substance Reaction Event Type N.K.D.A. Info Not Available Non Drug Allergy Problems Problem Type Condition Code Onset Dates Condition Status Problem Meniere's disease H81.09 Active Problem Hyperlipidemia E78.5 Active Problem Elevated blood-pressure reading without diagnosis of hypertension R03.0 Active Problem Fluttering heart I49.8 Active Problem Anxiety F41.9 Active Problem BMI 36.0-36.9,adult Z68.36 Active Problem Insomnia G47.00 Active Problem Hypothyroidism E03.9 Active Problem Prediabetes R73.09 Active Problem Depression F32.9 Active Assessment Prediabetes R73.09 Active Assessment Fluttering heart I49.8 Active Assessment Meniere's disease H81.09 Active Assessment Hyperlipidemia E78.5 Active Assessment Insomnia G47.00 Active Assessment Anxiety F41.9 Active Assessment BMI 36.0-36.9,adult Z68.36 Active Assessment Cough R05 Active Assessment Hypothyroidism E03.9 Active Assessment Bronchitis J40 Active Medications Medication Code System Code Instructions Start Date End Date Status Dosage Valium [facility] 88919603044 5 MG Orally Once a day Oct 06, 2017 Active 1 tablet as needed Triamterene-HCTZ [facility] [address]-81 25-37.5 MG Orally Once a day March 12, 2017 Active 1 tablet in the morning Synthroid [facility] 36700158717 75 MCG Orally Once a day Active 1 tablet Pravastatin Sodium [facility] 08149069255 40 mg Orally Once a day Active 1 tablet Zolpidem Tartrate ER [facility] 06877084995 12.5 MG Orally Once a day PRN March 15, 2013 Active 1 tablet Ceftin [facility] 10709719756 250 MG Orally Twice a day Jul 23, 2018 Aug 02, 2018 Active 1 tablet Escitalopram Oxalate [facility] 50365265843 10 mg orally Once a day Active 1 tablet ProAir HFA [facility] 81575538619 108 (90 Base) MCG/ACT Inhalation every 6 hrs Jul 23, 2018 Active 2 puffs as needed Vital Signs Date/Time: Jul 23, 2018 BMI 36.31 Index Weight 205 lbs Height 63 in Temperature 98.1 F Cardiac Monitoring Heart Rate 76 /min Blood Pressure Diastolic 80 mm Hg Blood Pressure Systolic 126 mm Hg Results Name Result Date Reference Range Unit Abnormality Flag Chest 2 views- Xray Summary Purpose eClinicalWorks Submission
--- OUTSIDE RECORDS SUMMARY | 2019-06-01 22:10 | XMS REPORT ---
Author Author Carina Austin [facility] eClinical[employer] Address Unknown Phone Unavailable Care Team Providers Care Offal Icer Poultry Name Role Phone Carina Austin CP Unavailable Encounters Encounter Location Date med refill [facility] June 21, 2014 Test results [facility] Jul 05, 2014 Unknown [facility] Sep 21, 2014 Problems Problem Type Condition ICD-9 Code Onset Dates Condition Status Problem Hyperlipidemia 272.4 Active Problem Insomnia 780.52 Active Problem Hypothyroidism 244.9 Active Problem Menieres disease 386.00 Active Medications Medication Code System Code Instructions Start Date End Date Status Dosage [facility] [address]-73 10 mg by mouth Once a day May 06, 2013 Active take 1-2 tablet by mouth every day Zolpidem Tartrate ER [facility] [address]-99 12.5 MG Orally once every night as needed March 15, 2013 Active 1 tablet Social History Social History Element Qualifiers Date Reported Ethnicity . Status , Is czech your primary language? Yes June 21, 2014 [...]
--- OUTSIDE RECORDS SUMMARY | 2019-06-01 22:10 | XMS REPORT ---
Author Author Mitch Moise Organization [employer] Address Unknown Phone Unavailable Care Team Providers Care Farm Equipment Assembler Name Role Phone Mitch Moise CP Unavailable [...] Start Date End Date Status Dosage Synthroid [facility] 78598135301 100 MCG Orally Once a day Sep 29, 2018 Active 1 tablet on an empty stomach in the morning Results No Known Results Summary Purpose eClinicalWorks Submission
--- OUTSIDE RECORDS SUMMARY | 2019-06-01 22:10 | XMS REPORT ---
Author Author Carina Austin [facility] e[employer] Address Unknown Phone Unavailable Care Team Providers Care Furnace Tapper Name Role Phone Carina Austin CP Unavailable Encounters Encounter Location Date med refill [facility] June 21, 2014 Test results [facility] Jul 05, 2014 Problems Problem Type Condition ICD-9 Code Onset Dates Condition Status Problem Hyperlipidemia 272.4 Active Problem Insomnia 780.52 Active Problem Hypothyroidism 244.9 Active Problem Menieres disease 386.00 Active Medications Medication Code System Code Instructions Start Date End Date Status Dosage Synthroid [facility] [address]-02 50 MCG Orally Once a day MUST SEE DOCTOR BEFORE NEXT REFILL Jul 12, 2013 Inactive 1 tablet Pravastatin Sodium [facility] [address]-12 40 mg Orally Once a day Jul 05, 2014 Active 1 tablet Synthroid [facility] [address]-79 75 MCG Orally Once a day Jul 05, 2014 Active 1 tablet on an empty stomach in the morning Pravastatin Sodium [facility] [address]-19 20 MG Inactive TAKE 1 TABLET ONCE A DAY ORALLY Social History Social History Element Qualifiers Date Reported Ethnicity . Status , Is romansh your primary language? Yes June 21, 2014 [...]
--- OUTSIDE RECORDS SUMMARY | 2019-06-01 22:11 | XMS REPORT ---
Author Author Carina Eaton [facility] eClinicalWorks Address Unknown Phone Unavailable Care Team Providers Care Dye Line Operator Name Role Phone Carina Eaton Unavailable Encounters Encounter Location Date Unknown [facility] Nov 10, 2014 Refill [facility] Dec 19, 2014 Unknown [facility] March 23, 2015 med refill [facility] June 07, 2015 med refill [facility] June 21, 2014 Test results [facility] Jul 05, 2014 Unknown [facility] Sep 21, 2014 Refill [facility] Aug 14, 2015 Refill [facility] June 18, 2015 LAB RESULTS [facility] Aug 13, 2015 Unknown [facility] Oct 08, 2015 Unknown [facility] Oct 09, 2015 Unknown [facility] Sep 11, 2015 Refill [facility] Sep 10, 2015 Unknown [facility] Aug 14, 2015 [place] [facility] Aug 23, 2015 Problems Problem Type Condition ICD-9 Code Onset Dates Condition Status Problem Elevated BP 796.2 Active Problem Hypothyroidism 244.9 Active Problem Hyperlipidemia E78.5 Active Problem Menieres disease 386.00 Active Problem Prediabetes 790.29 Active Problem Hyperlipidemia 272.4 Active Problem Insomnia 780.52 Active Social History Social History Element Qualifiers Date Reported Occupation: . Retired Aug 23, 2015 Last Colonoscopy: . never Aug 23, 2015 Depression Screening: . negative 06/07/15 Aug 23, 2015 Ethnicity . Status , Is danish your primary language? Yes Aug 23, 2015 [...]
--- OUTSIDE RECORDS SUMMARY | 2019-06-01 22:11 | XMS REPORT ---
Author Author Carina Eaton [facility] eClinicalWorks Address Unknown Phone Unavailable Care Team Providers Care Abrasive Water Jet Cutter Operator Name Role Phone Carina Eaton Unavailable Encounters Encounter Location Date Unknown [facility] Nov 10, 2014 Refill [facility] Dec 19, 2014 Unknown [facility] March 23, 2015 med refill [facility] June 07, 2015 med refill [facility] June 21, 2014 Test results [facility] Jul 05, 2014 Unknown [facility] Sep 21, 2014 Refill [facility] Aug 14, 2015 Refill [facility] June 18, 2015 LAB RESULTS [facility] Aug 13, 2015 Unknown [facility] Nov 13, 2015 Unknown [facility] Oct 08, 2015 Unknown [facility] Oct 09, 2015 Unknown [facility] Sep 11, 2015 Refill [facility] Sep 10, 2015 Unknown [facility] Aug 14, 2015 [place] [facility] Aug 23, 2015 Problems Problem Type Condition ICD-9 Code Onset Dates Condition Status Problem Elevated BP 796.2 Active Problem Hypothyroidism 244.9 Active Problem Hyperlipidemia E78.5 Active Problem Menieres disease 386.00 Active Problem Prediabetes 790.29 Active Problem Hyperlipidemia 272.4 Active Problem Insomnia 780.52 Active Medications Medication Code System Code Instructions Start Date End Date Status Dosage Bentyl [facility] [address]-04 10 mg Orally four times a day (qid) Nov 13, 2015 Dec 13, 2015 Active 1 capsule Social History Social History Element Qualifiers Date Reported Occupation: . Retired Aug 23, 2015 Last Colonoscopy: . never Aug 23, 2015 Depression Screening: . negative 06/07/15 Aug 23, 2015 Ethnicity . Status , Is uzbek your primary language? Yes Aug 23, 2015 [...]
--- OUTSIDE RECORDS SUMMARY | 2019-06-01 22:11 | XMS REPORT ---
Author Author Jami Gibbs [facility] eClinicalWorks Address Unknown Phone Unavailable Care Team Providers Care Financial Sales Advisor Name Role Phone Jami Gibbs Unavailable Allergies, Adverse Reactions, Alerts Substance Reaction Event Type N.K.D.A. Info Not Available Non Drug Allergy Encounters Encounter Location Date Unknown [facility] Nov 10, 2014 Refill [facility] Dec 19, 2014 Unknown [facility] March 23, 2015 med refill [facility] June 07, 2015 med refill [facility] June 21, 2014 Test results [facility] Jul 05, 2014 Unknown [facility] Sep 21, 2014 Refill [facility] Aug 14, 2015 Refill [facility] June 18, 2015 LAB RESULTS [facility] Aug 13, 2015 Unknown [facility] Nov 13, 2015 RF [facility] Jan 07, 2016 Unknown [facility] Oct 08, 2015 Unknown [facility] Oct 09, 2015 Unknown [facility] Sep 11, 2015 Refill [facility] Sep 10, 2015 Unknown [facility] Aug 14, 2015 [place] [facility] Aug 23, 2015 medication [facility] March 25, 2016 Problems Problem Type Condition ICD-9 Code Onset Dates Condition Status Assessment Prediabetes R73.09 Active Assessment Hyperlipidemia E78.5 Active Assessment Hypothyroidism E03.9 Active Assessment Depression F32.9 Active Assessment Insomnia G47.00 Active Problem Prediabetes R73.09 Active Problem Insomnia G47.00 Active Problem Hypothyroidism E03.9 Active Problem Elevated BP 796.2 Active Problem Menieres disease 386.00 Active Problem Depression F32.9 Active Problem Hyperlipidemia E78.5 Active Medications Medication Code System Code Instructions Start Date End Date Status Dosage Pravastatin Sodium [facility] [address]-88 40 mg Orally Once a day Active 1 tablet Escitalopram Oxalate [facility] [address]-93 10 mg by mouth Once a day May 06, 2013 Active take 1-2 tablet by mouth every day Zolpidem Tartrate ER [facility] [address]-33 12.5 MG Orally once every night as needed March 15, 2013 Active 1 tablet Synthroid [facility] [address]-99 75 MCG Orally Once a day Active 1 tablet Social History Social History Element Qualifiers Date Reported Occupation: . Retired March 25, 2016 Last Colonoscopy: . never March 25, 2016 Depression Screening: . negative March 25, 2016 Ethnicity . Status , Is divehi your primary language? Yes March 25, 2016 [...] March 25, 2016 Last Bone Density: . 2010March 25, 2016 Pneumoccocal Vaccine . No March 25, 2016 Do you drink alcohol? . Status: No March 25, 2016 Family history Qualifier Description Comment Date Reported Maternal Grandmother Comment not available March [...] Other: Comment not available March 25, 2016 Vital Signs Date/Time: March 25, 2016 Weight 229 lbs Height 63 in Cardiac Monitoring Heart Rate 66 /min Blood Pressure Diastolic 70 mm Hg Blood Pressure Systolic 122 mm Hg Summary Purpose eClinicalWorks Submission
--- OUTSIDE RECORDS SUMMARY | 2019-06-01 22:11 | XMS REPORT ---
Author Author Carina Longo [facility] eClinicalWorks Address Unknown Phone Unavailable Care Team Providers Care Electronic Equipment Repairmen Name Role Phone Carina Longo CP Unavailable [...] Start Date End Date Status Dosage Triamterene[facility] [address]-58 25-37.5 MG Orally Once a day March 12, 2017 Active 1 tablet in the morning Results No Known Results Summary Purpose eClinicalWorks Submission
--- OUTSIDE RECORDS SUMMARY | 2019-06-01 22:11 | XMS REPORT ---
Author Author Jami Gibbs [facility] eClinicalWorks Address Unknown Phone Unavailable Care Team Providers Care Organ Builder Name Role Phone Jami Gibbs Unavailable Encounters Encounter Location Date Unknown [facility] Nov 10, 2014 Refill [facility] Dec 19, 2014 Unknown [facility] March 23, 2015 med refill [facility] June 07, 2015 med refill [facility] June 21, 2014 Test results [facility] Jul 05, 2014 Unknown [facility] Sep 21, 2014 Refill [facility] Aug 14, 2015 Refill [facility] June 19, 2016 PA APPROVED- Rx Escitalopram 10 mg [facility] April 18, 2016 Refill [facility] June 18, 2015 LAB RESULTS [facility] Aug 13, 2015 Unknown [facility] Nov 13, 2015 RF [facility] Jan 07, 2016 Unknown [facility] Oct 08, 2015 Unknown [facility] Oct 09, 2015 Refill [facility] June 24, 2016 Unknown [facility] Sep 11, 2015 PA Rx Zolpidem [facility] Jun 30, 2016 Refill [facility] Sep 10, 2015 Unknown [facility] Aug 14, 2015 [place] [facility] Aug 23, 2015 medication [facility] March 25, 2016 Problems Problem Type Condition ICD-9 Code Onset Dates Condition Status Problem Prediabetes R73.09 Active Problem Insomnia G47.00 Active Problem Hypothyroidism E03.9 Active Problem Elevated BP 796.2 Active Problem Menieres disease 386.00 Active Problem Depression F32.9 Active Problem Hyperlipidemia E78.5 Active Social History Social History Element Qualifiers Date Reported Occupation: . Retired March 25, 2016 Last Colonoscopy: . never March 25, 2016 Depression Screening: . negative March 25, 2016 Ethnicity . Status , Is guyanese your primary language? Yes March 25, 2016 [...] alcohol? . Status: No March 25, 2016 Summary Purpose eClinicalWorks Submission
--- OUTSIDE RECORDS SUMMARY | 2019-06-01 22:11 | XMS REPORT ---
Author Author Jami Gibbs [facility] eClinicalWorks Address Unknown Phone Unavailable Care Team Providers Care Dean Name Role Phone Jami Gibbs Unavailable Encounters Encounter Location Date Unknown [facility] Nov 10, 2014 Refill [facility] Dec 19, 2014 Unknown [facility] March 23, 2015 med refill [facility] June 07, 2015 med refill [facility] June 21, 2014 Test results [facility] Jul 05, 2014 Unknown [facility] Sep 21, 2014 Refill [facility] Aug 14, 2015 Refill [facility] June 19, 2016 [place] APPROVED- Rx Escitalopram 10 mg [facility] April 18, 2016 Refill [facility] June 18, 2015 LAB RESULTS [facility] Aug 13, 2015 Unknown [facility] Nov 13, 2015 RF [facility] Jan 07, 2016 Unknown [facility] Oct 08, 2015 Unknown [facility] Oct 09, 2015 Unknown [facility] Sep 11, 2015 Refill [facility] Sep 10, 2015 Unknown [facility] Aug 14, 2015 [email or web address] [facility] Aug 23, 2015 medication [facility] [...] End Date Status Dosage Zolpidem Tartrate ER [facility] [address]-89 12.5 MG Orally once every night as needed March 15, 2013 Active 1 tablet Social History Social History Element Qualifiers Date Reported Occupation: . Retired March 25, 2016 Last Colonoscopy: . never March 25, 2016 Depression Screening: . negative March 25, 2016 Ethnicity . Status , Is bulgarian your primary language? Yes March 25, 2016 [...]
--- OUTSIDE RECORDS SUMMARY | 2019-06-01 22:11 | XMS REPORT ---
Author Author Jami Gibbs [facility] eClinicalWorks Address Unknown Phone Unavailable Care Team Providers Care Double Backer Name Role Phone Jami Gibbs Unavailable Encounters Encounter Location Date Unknown [facility] Nov 10, 2014 Refill [facility] Dec 19, 2014 Unknown [facility] March 23, 2015 med refill [facility] June 07, 2015 med refill [facility] June 21, 2014 Test results [facility] Jul 05, 2014 Unknown [facility] Sep 21, 2014 Refill [facility] Aug 14, 2015 Refill [facility] June 19, 2016 [place] APPROVED- Rx Escitalopram 10 mg [facility] April 18, 2016 Refill [facility] June 18, 2015 LAB RESULTS [facility] Aug 13, 2015 Unknown [facility] Nov 13, 2015 RF [facility] Jan 07, 2016 Unknown [facility] Oct 08, 2015 Unknown [facility] Oct 09, 2015 Refill [facility] June 24, 2016 Unknown [facility] Sep 11, 2015 Refill [facility] Sep 10, 2015 Unknown [facility] Aug 14, 2015 [email or web address] [facility] Aug 23, 2015 medication [facility] March 25, 2016 Problems Problem Type Condition ICD-9 Code Onset Dates Condition Status Problem Prediabetes R73.09 Active Problem Insomnia G47.00 Active Problem Hypothyroidism E03.9 Active Problem Elevated BP 796.2 Active Problem Menieres disease 386.00 Active Problem Depression F32.9 Active Problem Hyperlipidemia E78.5 Active Medications Medication Code System Code Instructions Start Date End Date Status Dosage Zolpidem Tartrate ER [facility] [address]-90 12.5 MG Orally once every night as needed March 15, 2013 Active 1 tablet Social History Social History Element Qualifiers Date Reported Occupation: . Retired March 25, 2016 Last Colonoscopy: . never March 25, 2016 Depression Screening: . negative March 25, 2016 Ethnicity . Status , Is kyrgyz your primary language? Yes March 25, 2016 [...]
--- OUTSIDE RECORDS SUMMARY | 2019-06-01 22:11 | XMS REPORT ---
Author Author Mitch Moise [facility] eClinicalWorks Address Unknown Phone Unavailable Care Team Providers Care Television Writer Name Role Phone Mitch Moise CP Unavailable Encounters Encounter Location Date Unknown [facility] Nov 10, [address] [facility] Dec 19, [address] [facility] March 23, [address] [facility] June 07, [address] [facility] June 21, [address] [facility] Jul 05, [address] [facility] Sep 21, [address] [facility] Aug 14, [address] [facility] June 18, [address] [facility] Aug 13, [address] [facility] Oct 08, [address] [facility] Oct 09, [address] [facility] Sep 11, [address] [facility] Sep 10, [address] [facility] Aug 14, 2015 [email or web address] [facility] Aug 23, 2015 Problems Problem Type Condition ICD-9 Code Onset Dates Condition Status Problem Elevated BP 796.2 Active Problem Hypothyroidism 244.9 Active Problem Hyperlipidemia E78.5 Active Problem Menieres disease 386.00 Active Problem Prediabetes 790.29 Active Problem Hyperlipidemia 272.4 Active Problem Insomnia 780.52 Active Medications Medication Code System Code Instructions Start Date End Date Status Dosage Zolpidem Tartrate ER [facility] [address]-16 12.5 MG Orally once every night as needed March 15, 2013 Active 1 tablet Social History Social History Element Qualifiers Date Reported Occupation: . Retired Aug 23, 2015 Last Colonoscopy: . never Aug 23, 2015 Depression Screening: . negative 06/07/15 Aug 23, 2015 Ethnicity . Status , Is portuguese your primary language? Yes Aug 23, 2015 [...]
--- OUTSIDE RECORDS SUMMARY | 2019-06-01 22:11 | XMS REPORT ---
Author Author Jami Gibbs [facility] eClinicalWorks Address Unknown Phone Unavailable Care Team Providers Care Ocean Export Agent Name Role Phone Jami Gibbs CP Unavailable Allergies, Adverse Reactions, Alerts Substance Reaction Event Type N.K.D.A. Info Not Available Non Drug Allergy Problems Problem Type Condition Code Onset Dates Condition Status Assessment Hyperlipidemia E78.5 Active Problem Elevated blood-pressure reading without diagnosis of hypertension R03.0 Active Problem Meniere's disease H81.09 Active Problem Fluttering heart I49.8 Active Problem Hypothyroidism E03.9 Active Problem Anxiety F41.9 Active Problem Depression F32.9 Active Problem Hyperlipidemia E78.5 Active Problem Prediabetes R73.09 Active Problem Insomnia G47.00 Active Assessment Anxiety F41.9 Active Assessment Prediabetes R73.09 Active Assessment Abnormal EKG R94.31 Active Assessment Hypothyroidism E03.9 Active Assessment Fluttering heart I49.8 Active Assessment Insomnia G47.00 Active Medications Medication Code System Code Instructions Start Date End Date Status Dosage Synthroid [facility] [address]-58 75 MCG Orally Once a day Active 1 tablet Pravastatin Sodium [facility] [address]-64 40 mg Orally Once a day Active 1 tablet Zolpidem Tartrate ER [facility] [address]-90 12.5 MG Orally once every night as needed March 15, 2013 Active 1 tablet Escitalopram Oxalate [facility] [address]-98 10 mg by mouth Once a day May 06, 2013 Active 1 tablet Vital Signs Date/Time: March 10, 2017 BMI 32.94 Index Weight 186 lbs Height 63 in Cardiac Monitoring Heart Rate 82 /min Blood Pressure Diastolic 88 mm Hg Blood Pressure Systolic 130 mm Hg Results Name Result Date Reference Range Unit Abnormality Flag EKG Summary Purpose eClinicalWorks Submission
--- OUTSIDE RECORDS SUMMARY | 2019-06-01 22:11 | XMS REPORT ---
Author Author Jami Gibbs [facility] eClinicalWorks Address Unknown Phone Unavailable Care Team Providers Care Load Haul Dump Operator Name Role Phone Jami Gibbs Unavailable Encounters Encounter Location Date Unknown [facility] Nov 10, 2014 Refill [facility] Dec 19, 2014 Unknown [facility] March 23, 2015 med refill [facility] June 07, 2015 med refill [facility] June 21, 2014 Test results [facility] Jul 05, 2014 Unknown [facility] Sep 21, 2014 Refill [facility] Aug 14, 2015 [place] APPROV[place]- Rx Escitalopram 10 mg [facility] April 18, 2016 Refill [facility] June 18, 2015 LAB RESULTS [facility] Aug 13, 2015 Unknown [facility] Nov 13, 2015 RF [facility] Jan 07, 2016 Unknown [facility] Oct 08, 2015 Unknown [facility] Oct 09, 2015 Unknown [facility] Sep 11, 2015 Refill [facility] Sep 10, 2015 Unknown [facility] Aug 14, 2015 [email or web address] [facility] Aug 23, 2015 medication [facility] March 25, [...] 25, 2016 Ethnicity . Status , Is south sudanese your primary language? Yes March 25, 2016 [...]
[2019-06-01] MEDS ORDERED: LEVOTHYROXINE100 MC1 PO (22:34)
[2019-06-01] MEDS ORDERED: ATORVASTATIN CA10 MG PO (22:34)
[2019-06-01] MEDS ORDERED: AMBIEN10 MG PO (22:34)
[2019-06-01 22:43] LABS: BASOPHILS # (AUTO) 0.1 (0.0-0.1); BASOPHILS % 0.4 % (0.0-1.0); EOSINOPHILS # (AUTO) 0.2 (0.0-0.4); EOSINOPHILS % 2.1 % (0.0-6.0); HEMATOCRIT 43.9 % (34.2-44.1); HEMOGLOBIN 14.4 g/dL (12.0-16.0); LYMPHOCYTES # (AUTO) 2.5 (1.0-3.2); LYMPHOCYTES % 21.8 % (18.0-39.1); MEAN CORPUSCULAR HEMOGLOBIN 30.5 pg (28-32); MEAN CORPUSCULAR HGB CONC 32.8 g/dL (31-35); MONOCYTES # (AUTO) 0.5 (0.2-0.8); MONOCYTES % 4.5 % (4.4-11.3); NEUTROPHILS # (AUTO) 8.3 (2.1-6.9); NEUTROPHILS % 70.9 % (38.7-80.0); PLATELET COUNT 252 x10e3/uL (140-360); RED BLOOD COUNT 4.72 x10e6/uL (3.6-5.1); RED CELL DISTRIBUTION WIDTH 13.2 % (11.7-14.4)
[2019-06-01 22:47] LABS: INR 0.87; PROTHROMBIN TIME 12.3 seconds (11.9-14.5)
[2019-06-01] MEDS ORDERED: FAMOTIDINE 20 MG/2 ML VIAL IV STA (22:49)
[2019-06-01] MEDS ORDERED: PANTOPRAZOLE 40 MG 10ML VIAL IV STA (22:49)
[2019-06-01 22:56] LABS: AMYLASE 70 U/L (25-125); LIPASE 45 U/L (8-78)
[2019-06-01 22:58] LABS: ALBUMIN 3.8 g/dL (3.5-5.0); ALBUMIN/GLOBULIN RATIO 1.1 (0.8-2.0); ANION GAP 14.9 mmol/L (8-16); CALCIUM 9.5 mg/dL (8.4-10.2); CREATININE, SERUM 1.09 mg/dL (0.57-1.11); POTASSIUM 3.9 mmol/L (3.5-5.1)
[2019-06-01] MEDS ORDERED: DONNATAL/LIDOCAINE/MAALOX 30 ML SUSP PO SCH (23:00)
[2019-06-01 23:04] LABS: CREATINE KINASE MB 2.1 ng/mL (0-5.0)
[2019-06-01] MEDS ORDERED: LIDOCAINE VISC 2% SOLN 15 ML UDC ONE (23:13)
[2019-06-01] MEDS ORDERED: BELLADONNA ALK/PHENOBARBITAL 5 ML UDC ONE (23:13)
[2019-06-01] MEDS ORDERED: MAGNESIUM/ALUMINUM/SIMETHICONE 30 ML UDC ONE (23:13)
[2019-06-01] MEDS ORDERED: LORAZEPAM 1 MG TAB ONE (23:14)
[2019-06-01] MEDS ORDERED: LORAZEPAM 1 MG TAB PO ONE (23:15)
--- NOTE | 2019-06-01 23:22 | Diagnostic Imaging Report ---
EXAMINATION: CHEST 2 VIEWS INDICATION: ^CHEST PAIN COMPARISON: None FINDINGS: PA and lateral views TUBES and LINES: None. LUNGS: Lungs are well inflated. There is no evidence of pneumonia or pulmonary edema. PLEURA: No pleural effusion or pneumothorax. Central eventration of the right diaphragm. HEART AND MEDIASTINUM: The cardiomediastinal silhouette is unremarkable. BONES AND SOFT TISSUES: No focal osseous lesions. Soft tissues are unremarkable. UPPER ABDOMEN: No free air under the diaphragm. Cholecystectomy clips. IMPRESSION: No acute thoracic abnormality. Signed by: Dr. Jeffrey Adrian MD on 06/01/2019 11:19 PM
[2019-06-01] MEDS ORDERED: SODIUM CHLORIDE 0.9% 1000ML 1,000 ML IV STA (23:43)
[2019-06-02] MEDS ORDERED: SODIUM CHLORIDE 0.9% 50ML 50 ML ONE (00:12)
[2019-06-02] MEDS ORDERED: IOPAMIDOL 370 MG/ML 200 ML INFUS..BTL INJ ONE (00:12)
--- NOTE | 2019-06-02 00:57 | Diagnostic Imaging Report ---
CT Abdomen And Pelvis with Intravenous Contrast INDICATION: Substernal chest pain ^Abd pain ^[id number] ^0015 TECHNIQUE: Thin collimation axial images obtained from the diaphragm to the level of the pubic symphysis following the uneventful administration of 100 cc of low osmolar, nonionic intravenous contrast. Dose reduction techniques used: Automated exposure control, adjustment of the mAs and/or kVp according to patient size, standardized low-dose protocol, and/or iterative reconstruction technique. RADIATION DOSE: Total DLP: 780.11 mGy*cm Estimated effective dose: (DLP x 0.015 x size factor) mSv CTDIvol has been reviewed. It is below the limits set by the Radiation Protocol Committee (RPC). COMPARISON: None. ABDOMEN FINDINGS: Lung Bases: Clear. The visualized portions of the mediastinum are normal. Liver: Normal attenuation. No evidence for mass. Gallbladder: Absent. No biliary ductal dilatation. Pancreas: Mild fatty atrophy. No mass or ductal dilatation. Spleen: Normal in size. No evidence of mass. Adrenal Glands: No evidence for mass. Kidneys: Right: Normal enhancement. Low attenuating lesion measures 7 mm and is too small to characterize. No hydronephrosis. Left: Normal enhancement. No soft tissue mass. No hydronephrosis. Lymph Nodes: No enlarged abdominal or retroperitoneal lymph nodes. Aorta: Normal in diameter with scattered calcifications PELVIS FINDINGS: Bowel: Stomach: Normal. Small Bowel: Normal in caliber with normal wall thickness. Large Bowel: There are a few scattered diverticula. No associated inflammation. The descending colon is displaced anteriorly and medially by a fat attenuating mass described below. Appendix: Normal appendix. Bladder: Under distended but otherwise normal. The uterus is present and normal in morphology. No adnexal mass. A linear hyperdensity along the mid body to the right of midline represent a clip. Peritoneum/retroperitoneum: No free fluid or fluid collection. Fat attenuating retroperitoneal mass in the left hemiabdomen measures 12.6 x 12.1 x 21.7 cm and extends into the upper left thigh involving the iliopsoas. There are a few wispy bands of soft tissue within. No calcifications. Bones: Unremarkable. IMPRESSION: 1. Scattered colonic diverticula. No evidence for bowel obstruction or inflammation. Normal appendix. 2. Large fat attenuating mass in the left retroperitoneum stenting of the upper left thigh suggestive of a lipoma. 3. Cholecystectomy. Normal biliary tree. Signed by: Dr. Jeffrey Adrian MD on 06/02/2019 12:53 AM
[2019-06-02 01:40] VITALS: BP 107/74
[2019-06-02] MEDS ORDERED: OMEPRAZOLE40 MG PO (01:40)
[2019-06-02] MEDS ORDERED: VALIUM2 MG PO (01:40)
[2019-06-02] MEDS ORDERED: ULTRAM50 MG PO (01:40)
[2019-06-02] MEDS ORDERED: MAALOX ADVANCE1 EACH PO (01:40)
[2019-06-02] MEDS ORDERED: TYLENOL # 31 EA PO (01:40)
[2019-07-26] MEDS ORDERED: ULTRAM50 MG PO (11:13)
[2019-07-26] MEDS ORDERED: SERTRALINE HCL50 MG PO (11:13)
[2019-07-26] MEDS ORDERED: TRIAMTERENE-HCTZ1 EA PO (11:13)
[2019-07-26] MEDS ORDERED: DIAZEPAM5 MG PO (11:13)
== END 2019-06-02 01:50 | disposition home or self-care (01) ==
LOC: ER 22:05
DX: R07.89 Other chest pain (principal); K21.0 Gastro-esophageal reflux disease with esophagitis
CPT/HCPCS: 36415; 71046; 74177; 80053; 82150; 82550; 82553; 83690; 84484; 85025; 85610; 85730; 93005; 96374; 99284; C9113; J7030; Q9967

== ENCOUNTER → 2019-06-16 | Outpatient (CLI) | payer MEDICARE, OTHER ==
[~2019-06-16] MED LIST: AMBIEN10 MG PO; ANUCORT-HC25 MG RC; ASCORBIC ACID500 M2 PO; ATORVASTATIN CA10 MG PO; DIAZEPAM5 MG PO; FERROUS SULFAT325 MG PO; LEVOTHYROXINE100 MC1 PO; MAALOX ADVANCE1 EACH PO; OMEPRAZOLE40 MG PO; SERTRALINE HCL50 MG PO; TRIAMTERENE-HCTZ1 EA PO; TYLENOL # 31 EA PO; ULTRAM50 MG PO; VALIUM2 MG PO
--- NOTE | 2019-06-16 15:13 | Diagnostic Imaging Report ---
EXAM: US ABDOMEN COMPLETE DATE: 06/16/2019 1:15 PM INDICATION: Elevated liver enzymes. COMPARISON: CT abdomen pelvis of 06/02/2019 TECHNIQUE: Transverse and longitudinal macias scale and color doppler sonographic images of the upper abdomen were obtained. FINDINGS: There is no evidence of fluid or masses seen in the area of clinical concern in the right lower quadrant. LIVER 13.9 cm in the right midclavicular line. Increased echogenicity of the liver with normal contour, no masses. SPLEEN 7.5 cm in maximum diameter. Normal echogenicity, no masses. GALLBLADDER Status post cholecystectomy. BILE DUCTS No intra nor extra-hepatic biliary dilation. Common bile duct measures 0.6cm PANCREAS: Visualized portions are normal. RIGHT KIDNEY: 10.2 cm Echogenicity: Normal Collecting System: No hydronephrosis Stones: None Cyst/Mass: None LEFT KIDNEY: 9.9 cm Echogenicity: Normal Collecting System: No hydronephrosis Stones: None Cyst/Mass: None VESSELS: Aorta: Visualized portions are within normal size limits Inferior Vena Cava: Visualized portions are normal Main Portal Vein: 1.3 cm, normal size with hepatopetal flow. FREE FLUID: None IMPRESSION: Hepatic steatosis. Status post cholecystectomy. Signed by: Nelly Waite MD on 06/16/2019 3:09 PM
== END ==
LOC: US 12:55
PROVIDERS: ATTEND Internal Medicine Gastroenterology
DX: R74.8 Abnormal levels of other serum enzymes (principal)
CPT/HCPCS: 76700

== ENCOUNTER → 2019-08-03 | Day surgery (SDC) | payer MEDICARE, OTHER ==
[2019-07-26 11:42] LABS: BASOPHILS # (AUTO) 0.1 (0.0-0.1); BASOPHILS % 0.8 % (0.0-1.0); EOSINOPHILS # (AUTO) 0.2 (0.0-0.4); EOSINOPHILS % 3.1 % (0.0-6.0); HEMATOCRIT 43.9 % (34.2-44.1); HEMOGLOBIN 14.4 g/dL (12.0-16.0); LYMPHOCYTES # (AUTO) 2.4 (1.0-3.2); LYMPHOCYTES % 31.4 % (18.0-39.1); MEAN CORPUSCULAR HEMOGLOBIN 30.4 pg (28-32); MEAN CORPUSCULAR HGB CONC 32.8 g/dL (31-35); MEAN CORPUSCULAR VOLUME 92.8 fL (81-99); MONOCYTES # (AUTO) 0.4 (0.2-0.8); MONOCYTES % 5.7 % (4.4-11.3); NEUTROPHILS # (AUTO) 4.6 (2.1-6.9); NEUTROPHILS % 58.7 % (38.7-80.0); PLATELET COUNT 235 x10e3/uL (140-360); RED BLOOD COUNT 4.73 x10e6/uL (3.6-5.1); RED CELL DISTRIBUTION WIDTH 13.2 % (11.7-14.4)
[~2019-08-03] MED LIST changes: +FENTANYL CITRATE/PF 100MCG/2 ML INJ ONE; +HYOSCYAMINE 0.125 MG TAB ONE; +MIDAZOLAM HCL 2 MG/2 ML VIAL ONE; +PROPOFOL IV EMULSION 10 MG/ML 50 ML VIAL ONE
--- OUTSIDE RECORDS SUMMARY | 2019-08-03 06:05 | XMS REPORT | Continuity of Care Document ---
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 Role Phone Make Meaning Information Exchange Unavailable Unavailable Problems Problem Status Onset Date Classification Date Reported Comments Source Elevated blood-pressure reading without diagnosis of hypertension Active Diagnosis 06/11/2019 [facility] Meniere's disease Active Problem 06/29/2019 [facility] Fluttering heart Active Problem 05/26/2019 [facility] Hypothyroidism Active Problem 06/29/2019 [facility] Anxiety Active Diagnosis 06/29/2019 [facility] Depression Active Problem 06/29/2019 [facility] Hyperlipidemia Active Problem 06/29/2019 [facility] Prediabetes Active Problem 06/29/2019 [facility] Insomnia Active Problem 06/29/2019 [facility] Abnormal EKG Active Diagnosis 03/12/2017 [facility] BMI 36.0-36.9,adult Active Problem 06/29/2019 [facility] Cough Active Diagnosis 08/07/2018 [facility] Bronchitis Active Diagnosis 06/11/2019 [facility] Hyperlipidemia [...] 01/08/2016 [facility] Osteopenia of multiple sites Active Problem 06/29/2019 [facility] Asymptomatic postmenopausal estrogen deficiency Active Diagnosis 06/11/2019 [facility] Breast cancer screening Active Diagnosis 06/11/2019 [facility] Physical exam Active Diagnosis 06/11/2019 [facility] Medications Medication Details Route Status Patient Instructions Ordering Provider Order Date Source Sertraline HCl 1 tablet Orally Active 50 mg Orally Once a day Hubbard 06/03/2019 [facility] Lipitor 1 tablet Orally Active 10 mg Orally Once a day Hubbard 09/29/2018 [facility] Synthroid 1 tablet on an empty stomach in the morning Orally Active 100 MCG Orally Once a day Hubbard 09/29/2018 [facility] Bromfed DM 10 ml as needed Orally Active 30-2-10 MG/5ML Orally every 4 hrs Hubbard 08/10/2018 [facility] Ceftin 1 tablet Orally Active 250 MG Orally Twice a day Hubbard 07/23/2018 [facility] ProAir HFA 2 puffs as needed Inhalation Active 108 (90 Base) MCG/ACT Inhalation every 6 hrs Hubbard 07/23/2018 [facility] Valium 1 tablet as needed Orally Active 5 MG Orally Once a day Hubbard 10/06/2017 [facility] Triamterene-HCTZ 1 tablet in the morning Orally Active 25-37.5 MG Orally Once a day Hubbard 03/12/2017 [facility] Bentyl 1 capsule Orally Active 10 mg Orally four times a day (qid) Uma 11/13/2015 [facility] Belviq 1 tablet Orally Active 10 mg Orally Twice a day Liz 06/07/2015 [facility] Pravastatin Sodium 1 tablet Orally Active 40 mg Orally Once a day [place] 07/05/2014 [facility] Synthroid 1 tablet on an empty stomach in the morning Orally Active 75 MCG Orally Once a day [place] 07/05/2014 [facility] Analpram Advanced as directed Combination Active 2.5-1 % Combination as directed Liz 07/13/2013 [facility] Synthroid 1 tablet Orally No Longer Active 50 MCG Orally Once a day MUST SEE DOCTOR BEFORE NEXT REFILL Geovanna 07/12/2013 [facility] Escitalopram Oxalate 1 tablet by mouth Active 10 mg by mouth Once a day Sai 05/06/2013 [facility] Zolpidem Tartrate ER 1 tablet Orally Active 12.5 MG Orally once every night as needed [facility] [place] 03/15/2013 [facility] Zolpidem Tartrate ER 1 tablet Orally Active 12.5 MG Orally q hs prn Jose Maria 03/15/2013 [facility] Synthroid 1 tablet Orally Active 75 MCG Orally Once a day Sai [facility] Pravastatin Sodium 1 tablet Orally Active 40 mg Orally Once a day Sai [facility] Escitalopram Oxalate 1 tablet orally Active 10 mg orally Once a day Jose Maria [facility] Synthroid 1 tablet Orally Active 75 MCG Orally Once a day Jose Maria [facility] Synthroid 1 tablet on an empty stomach in the morning Orally Active 100 MCG Orally Once a day [facility] Pravastatin Sodium 1 tablet Orally Active 40 mg Orally Once a day Jose Maria [facility] Pravastatin Sodium TAKE 1 TABLET ONCE A DAY ORALLY NA No Longer Active [facility] Lexapro TAKE 1-2 TABLETS BY MOUTH EVERYDAY NA Active 10 MG Liz [facility] Omeprazole 1 capsule Orally Active 40 MG Orally Once a day Jose Maria [facility] Synthroid 1 tablet on an empty stomach in the morning Orally Active 100 MCG Orally Once a day Jose Maria [facility] Triamterene-HCTZ TAKE ONE (1) CAPSULE(S) BY MOUTH EVERY MORNING. NA Active 37.5-25 MG Jose Maria [facility] Allergies, Adverse Reactions, Alerts Substance Category Reaction Severity Reaction type Status Date Reported Comments Source N.K.D.A. Adverse Reaction Info Not Available Adverse Reaction Active 06/03/2019 [facility] Immunizations No Data Provided for This [...] Vital Sign Value Date Comments Source Weight 229 06/03/2019 [facility] Height 63 06/03/2019 [facility] Heart Rate 70 06/03/2019 [facility] Diastolic (mm Hg) 68 06/03/2019 [facility] Systolic (mm Hg) 124 06/03/2019 [facility] Weight 205 07/23/2018 [facility] Height 63 07/23/2018 [facility] Temperature Oral (F) 98.1 F 07/23/2018 [facility] Heart Rate 76 07/23/2018 [facility] Diastolic (mm Hg) 80 07/23/2018 [facility] Systolic (mm Hg) 126 07/23/2018 [facility] Weight 186 03/10/2017 [facility] Height 63 03/10/2017 [facility] Heart Rate 82 03/10/2017 [facility] Diastolic (mm Hg) 88 03/10/2017 [facility] Systolic (mm Hg) 130 03/10/2017 [facility] Weight 229 03/25/2016 [facility] Height 63 03/25/2016 [facility] Heart Rate [...] [facility] Diastolic (mm Hg) 80 06/07/2015 [facility] Systolic (mm Hg) 126 06/07/2015 [facility] Weight 219 06/21/2014 [facility] Height 63 06/21/2014 [facility] Heart Rate 63 06/21/2014 [facility] Diastolic (mm Hg) 78 06/21/2014 [facility] Systolic (mm Hg) 124 06/21/2014 [facility] Encounters Location Location Details Encounter Type Encounter Number Reason For Visit Attending Provider ADM Date DC Date Status Source [facility] med refill [id number] 06/21/2014 06/21/2014 [facility] med refill [id number] 06/21/2014 06/21/2014 [facility] med refill [id number] 06/21/2014 06/21/2014 [facility] med refill [id number] 06/21/2014 06/21/2014 [facility] med refill [id number] 06/21/2014 06/21/2014 [facility] med refill [id number] 06/21/2014 06/21/2014 [facility] med refill [id number] 06/21/2014 06/21/2014 [facility] med refill [id number] 06/21/2014 06/21/2014 [facility] med refill [id number] 06/21/2014 06/21/2014 [facility] med refill [id number] 06/21/2014 06/21/2014 [facility] med refill [id number] 06/21/2014 06/21/2014 [facility] med refill [id number] 06/21/2014 06/21/2014 [facility] med refill [id number] 06/21/2014 06/21/2014 [facility] med refill [id number] 06/21/2014 06/21/2014 [facility] med refill [id number] 06/21/2014 06/21/2014 [facility] med refill [id number] 06/21/2014 06/21/2014 [facility] Test results [id number] 07/05/2014 07/05/2014 [facility] Test results [id number] 07/05/2014 07/05/2014 [facility] Test results [id number] 07/05/2014 07/05/2014 [facility] Test results [id number] 07/05/2014 07/05/2014 [facility] Test results [id number] 07/05/2014 07/05/2014 [facility] Test results [id number] 07/05/2014 07/05/2014 [facility] Test results [id number] 07/05/2014 07/05/2014 [facility] Test results [id number] 07/05/2014 07/05/2014 [facility] Test results [id number] 07/05/2014 07/05/2014 [facility] Test results [id number] 07/05/2014 07/05/2014 [facility] Test results [id number] 07/05/2014 07/05/2014 [facility] Test results [id number] 07/05/2014 07/05/2014 [facility] Test results [id number] 07/05/2014 07/05/2014 [facility] Test results [id number] 07/05/2014 07/05/2014 [facility] Test results [id number] 07/05/2014 07/05/2014 [facility] Test results [id number] 07/05/2014 07/05/2014 [facility] Unknown [id number] 09/21/2014 09/21/2014 [facility] Unknown [id number] 09/21/2014 09/21/2014 [facility] Unknown [id number] 09/21/2014 09/21/2014 [facility] Unknown [id number] 09/21/2014 09/21/2014 [facility] Unknown [id number] 09/21/2014 09/21/2014 [facility] Unknown [id number] 09/21/2014 09/21/2014 [facility] Unknown [id number] 09/21/2014 09/21/2014 [facility] Unknown [id number] 09/21/2014 09/21/2014 [facility] Unknown [id number] 09/21/2014 09/21/2014 [facility] Unknown [id number] 09/21/2014 09/21/2014 [facility] Unknown [id number] 09/21/2014 09/21/2014 [facility] Unknown [id number] 09/21/2014 09/21/2014 [facility] Unknown [id number] 09/21/2014 09/21/2014 [facility] Unknown [id number] 09/21/2014 09/21/2014 [facility] Unknown [id number] 11/10/2014 11/10/2014 [facility] Unknown [id number] 11/10/2014 11/10/2014 [facility] Unknown [id number] 11/10/2014 11/10/2014 [facility] Unknown [id number] 11/10/2014 11/10/2014 [facility] Unknown [id number] 11/10/2014 11/10/2014 [facility] Unknown [id number] 11/10/2014 11/10/2014 [facility] Unknown [id number] 11/10/2014 11/10/2014 [facility] Unknown [id number] 11/10/2014 11/10/2014 [facility] Unknown [id number] 11/10/2014 11/10/2014 [facility] Unknown [id number] 11/10/2014 11/10/2014 [facility] Unknown [id number] 11/10/2014 11/10/2014 [facility] Unknown [id number] 11/10/2014 11/10/2014 [facility] Unknown [id number] 11/10/2014 11/10/2014 [facility] Refill [id number] 12/19/2014 12/19/2014 [facility] Refill [id number] 12/19/2014 12/19/2014 [facility] Refill [id number] 12/19/2014 12/19/2014 [facility] Refill [id number] 12/19/2014 12/19/2014 [facility] Refill [id number] 12/19/2014 12/19/2014 [facility] Refill [id number] 12/19/2014 12/19/2014 [facility] Refill [id number] 12/19/2014 12/19/2014 [facility] Refill [id number] 12/19/2014 12/19/2014 [facility] Refill [id number] 12/19/2014 12/19/2014 [facility] Refill [id number] 12/19/2014 12/19/2014 [facility] Refill [id number] 12/19/2014 12/19/2014 [facility] Refill [id number] 12/19/2014 12/19/2014 [facility] Unknown [id number] 03/23/2015 03/23/2015 [facility] Unknown [id number] 03/23/2015 03/23/2015 [facility] Unknown [id number] 03/23/2015 03/23/2015 [facility] Unknown [id number] 03/23/2015 03/23/2015 [facility] Unknown [id number] 03/23/2015 03/23/2015 [facility] Unknown [id number] 03/23/2015 03/23/2015 [facility] Unknown [id number] 03/23/2015 03/23/2015 [facility] Unknown [id number] 03/23/2015 03/23/2015 [facility] Unknown [id number] 03/23/2015 03/23/2015 [facility] Unknown [id number] 03/23/2015 03/23/2015 [facility] Unknown [id number] 03/23/2015 03/23/2015 [facility] med refill [id number] 06/07/2015 06/07/2015 [facility] med refill [id number] 06/07/2015 06/07/2015 [facility] med refill [id number] 06/07/2015 06/07/2015 [facility] med refill [id number] 06/07/2015 06/07/2015 [facility] med refill [id number] 06/07/2015 06/07/2015 [facility] med refill [id number] 06/07/2015 06/07/2015 [facility] med refill [id number] 06/07/2015 06/07/2015 [facility] med refill [id number] 06/07/2015 06/07/2015 [facility] med refill [id number] 06/07/2015 06/07/2015 [facility] med refill [id number] 06/07/2015 06/07/2015 [facility] med refill [id number] 06/07/2015 06/07/2015 [facility] Refill [id number] 06/18/2015 06/18/2015 [facility] Refill [id number] 06/18/2015 06/18/2015 [facility] Refill [id number] 06/18/2015 06/18/2015 [facility] Refill [id number] 06/18/2015 06/18/2015 [facility] Refill [id number] 06/18/2015 06/18/2015 [facility] Refill [id number] 06/18/2015 06/18/2015 [facility] Refill [id number] 06/18/2015 06/18/2015 [facility] Refill [id number] 06/18/2015 06/18/2015 [facility] Refill [id number] 06/18/2015 06/18/2015 [facility] Refill [id number] 06/18/2015 06/18/2015 [facility] LAB RESULTS [id number] 08/13/2015 08/13/2015 [facility] LAB RESULTS [id number] 08/13/2015 08/13/2015 [facility] LAB RESULTS [id number] 08/13/2015 08/13/2015 [facility] LAB RESULTS [id number] 08/13/2015 08/13/2015 [facility] LAB RESULTS [id number] 08/13/2015 08/13/2015 [facility] LAB RESULTS [id number] 08/13/2015 08/13/2015 [facility] LAB RESULTS [id number] 08/13/2015 08/13/2015 [facility] LAB RESULTS [id number] 08/13/2015 08/13/2015 [facility] LAB RESULTS [id number] 08/13/2015 08/13/2015 [facility] Refill [id number] 08/14/2015 08/14/2015 [facility] Refill [id number] 08/14/2015 08/14/2015 [facility] Refill [id number] 08/14/2015 08/14/2015 [facility] Refill [id number] 08/14/2015 08/14/2015 [facility] Refill [id number] 08/14/2015 08/14/2015 [facility] Refill [id number] 08/14/2015 08/14/2015 [facility] Refill [id number] 08/14/2015 08/14/2015 [facility] Refill [id number] 08/14/2015 08/14/2015 [facility] Refill [id number] 08/14/2015 08/14/2015 [facility] Unknown [id number] 08/14/2015 08/14/2015 [facility] Unknown [id number] 08/14/2015 08/14/2015 [facility] Unknown [id number] 08/14/2015 08/14/2015 [facility] Unknown [id number] 08/14/2015 08/14/2015 [facility] Unknown [id number] 08/14/2015 08/14/2015 [facility] Unknown [id number] 08/14/2015 08/14/2015 [facility] Unknown [id number] 08/14/2015 08/14/2015 [facility] Unknown [id number] 08/14/2015 08/14/2015 [facility] Unknown [id number] 08/14/2015 08/14/2015 [facility] NATHAN)-UA [id number] 08/23/2015 08/23/2015 [facility] NATHAN)-UA [id number] 08/23/2015 08/23/2015 [facility] NATHAN)-UA [id number] 08/23/2015 08/23/2015 [facility] NATHAN)-UA [id number] 08/23/2015 08/23/2015 [facility] NATHAN)-UA [id number] 08/23/2015 08/23/2015 [facility] NATHAN)-UA [id number] 08/23/2015 08/23/2015 [facility] NVSCOTT)-UA [id number] 08/23/2015 08/23/2015 [facility] NATHAN)-UA [id number] 08/23/2015 08/23/2015 [facility] NVSCOTT)-UA [id number] 08/23/2015 08/23/2015 [facility] Refill [id number] 09/10/2015 09/10/2015 [facility] Refill [id number] 09/10/2015 09/10/2015 [facility] Refill [id number] 09/10/2015 09/10/2015 [facility] Refill [id number] 09/10/2015 09/10/2015 [facility] Refill [id number] 09/10/2015 09/10/2015 [facility] Refill [id number] 09/10/2015 09/10/2015 [facility] Refill [id number] 09/10/2015 09/10/2015 [facility] Refill [id number] 09/10/2015 09/10/2015 [facility] Refill [id number] 09/10/2015 09/10/2015 [facility] Unknown [id number] 09/11/2015 09/11/2015 [facility] Unknown [id number] 09/11/2015 09/11/2015 [facility] Unknown [id number] 09/11/2015 09/11/2015 [facility] Unknown [id number] 09/11/2015 09/11/2015 [facility] Unknown [id number] 09/11/2015 09/11/2015 [facility] Unknown [id number] 09/11/2015 09/11/2015 [facility] Unknown [id number] 09/11/2015 09/11/2015 [facility] Unknown [id number] 09/11/2015 09/11/2015 [facility] Unknown [id number] 09/11/2015 09/11/2015 [facility] Unknown [id number] 10/08/2015 10/08/2015 [facility] Unknown [id number] 10/08/2015 10/08/2015 [facility] Unknown [id number] 10/08/2015 10/08/2015 [facility] Unknown [id number] 10/08/2015 10/08/2015 [facility] Unknown [id number] 10/08/2015 10/08/2015 [facility] Unknown [id number] 10/08/2015 10/08/2015 [facility] Unknown [id number] 10/08/2015 10/08/2015 [facility] Unknown [id number] 10/08/2015 10/08/2015 [facility] Unknown [id number] 10/08/2015 10/08/2015 [facility] Unknown [id number] 10/09/2015 10/09/2015 [facility] Unknown [id number] 10/09/2015 10/09/2015 [facility] Unknown [id number] 10/09/2015 10/09/2015 [facility] Unknown [id number] 10/09/2015 10/09/2015 [facility] Unknown [id number] 10/09/2015 10/09/2015 [facility] Unknown [id number] 10/09/2015 10/09/2015 [facility] Unknown [id number] 10/09/2015 10/09/2015 [facility] Unknown [id number] 10/09/2015 10/09/2015 [facility] Unknown [id number] 10/09/2015 10/09/2015 [facility] Unknown [id number] 11/13/2015 11/13/2015 [facility] Unknown [id number] 11/13/2015 11/13/2015 [facility] Unknown [id number] 11/13/2015 11/13/2015 [facility] Unknown [id number] 11/13/2015 11/13/2015 [facility] Unknown [id number] 11/13/2015 11/13/2015 [facility] Unknown [id number] 11/13/2015 11/13/2015 [facility] Unknown [id number] 11/13/2015 11/13/2015 [facility] [place] [id number] 01/07/2016 01/07/2016 [facility] RF [id number] 01/07/2016 01/07/2016 [facility] RF [id number] 01/07/2016 01/07/2016 [facility] RF [id number] 01/07/2016 01/07/2016 [facility] RF [id number] 01/07/2016 01/07/2016 [facility] RF [id number] 01/07/2016 01/07/2016 [facility] medication [id number] 03/25/2016 03/25/2016 [facility] medication [id number] 03/25/2016 03/25/2016 [facility] medication [id number] 03/25/2016 03/25/2016 [facility] medication [id number] 03/25/2016 03/25/2016 [facility] medication [id number] 03/25/2016 03/25/2016 [facility] APPROVED- Rx Escitalopram 10 mg [id number] 04/18/2016 04/18/2016 [facility]PROV[facility]- Rx Escitalopram 10 mg [id number] 04/18/2016 04/18/2016 [facility]PROV[facility]- Rx Escitalopram 10 mg [id number] 04/18/2016 04/18/2016 [facility]- Rx Escitalopram 10 mg [id number] 04/18/2016 04/18/2016 [facility] Refill [id number] 06/19/2016 06/19/2016 [facility] Refill [id number] 06/19/2016 06/19/2016 [facility] Refill [id number] 06/19/2016 06/19/2016 [facility] Refill [id number] 06/24/2016 06/24/2016 [facility] Refill [id number] 06/24/2016 06/24/2016 [facility] Rx [id number] 06/30/2016 06/30/2016 [facility] Procedures No Data Provided for This Section Assessment and Plan No Data Provided for This Section Plan of Care No Data Provided for This Section Social History Social History Date Source Social History ElementQualifiersDate Reported Occupation: . Retired March 25, 2016 Last Colonoscopy: . never March 25, 2016 Depression Screening: . negative March 25, 2016 Ethnicity . Status , Is swedish your primary language? Yes March 25, 2016 [...] . Status: No March 25, 2016 03/25/2016 [facility] Family History Value Date Source QualifierDescriptionCommentDate Reported [...]
--- OUTSIDE RECORDS SUMMARY | 2019-08-03 06:05 | XMS REPORT ---
Author Author Mitch Moise Organization [employer] Address Unknown Phone Unavailable Care Team Providers Care Dewater[employer] Filtering Supervisor Name Role Phone Mitch Moise CP Unavailable Allergies No Known Allergies Problems Problem Type Condition Code Onset Dates Condition Status Problem Hyperlipidemia E78.5 Active Problem Meniere's disease H81.09 Active Assessment Anxiety F41.9 Active Problem BMI 36.0-36.9,adult Z68.36 Active Problem Anxiety F41.9 Active Problem Osteopenia of multiple sites M85.89 Active Problem Insomnia G47.00 Active Problem Hypothyroidism E03.9 Active Problem Prediabetes R73.09 Active Problem Depression F32.9 Active Medications Medication Code System Code Instructions Start Date End Date Status Dosage Zolpidem Tartrate [facility] [id number] 12.5 MG Orally q hs prn March 15, 2013 Active 1 tablet Results No Known Results Summary Purpose [employer] Submission
--- OUTSIDE RECORDS SUMMARY | 2019-08-03 06:06 | XMS REPORT ---
Author Author [facility] Address Unknown Phone Unavailable Care Team Providers Care General Warehouse Worker Name Role Phone KORTNEY CASEY Unavailable Unavailable Nikita TELLEZ Unavailable Unavailable Problems This patient has no known problems. Allergies, Adverse Reactions, Alerts This patient has no known allergies or adverse reactions. Medications This patient has no known medications. Results Test Description Test Time Test Comments Text Results Atomic Results Result Comments US ABDOMEN COMPLETE 2019-06-16 15:06:00 [facility] [address] [place] [address] Patient Name: ZAKIYA ORR MR #: [id number] : 1950 Age/Sex: 69/F Req #: [id number] Adm Physician: Ordered by: KORTNEY CASEY MD Report #: [id number] Location: US Room/Bed: Procedure: [id number] US/US ABDOMEN COMPLETE Exam Date: 06/16/19 Exam Time: 1403 REPORT STATUS: Signed EXAM: US ABDOMEN COMPLETE DATE: 06/16/2019 1:15 PM INDICATION: Elevated liver enzymes. COMPARISON: CT abdomen pelvis of 06/02/2019 TECHNIQUE: Transverse and longitudinal macias scale and color doppler sonographic images of the upper abdomen were obtained. FINDINGS: There is no evidence of fluid or masses seen in the area of clinical concern in the right lower quadrant. LIVER 13.9 cm in the right midclavicular line. Increased echogenicity of the liver with normal contour, no masses. SPLEEN 7.5 cm in maximum diameter. Normal echogenicity, no masses. GALLBLADDER Status post cholecystectomy. BILE DUCTS No intra nor extra-hepatic biliary dilation. Common bile duct measures 0.6cm PANCREAS: Visualized portions are normal. RIGHT KIDNEY: 10.2 cm Echogenicity: Normal Collecting System: No hydronephrosis Stones: None Cyst/Mass: None LEFT KIDNEY: 9.9 cm Echogenicity: Normal Collecting System: No hydronephrosis Stones: None Cyst/Mass: None VESSELS: Aorta: Visual ized portions are within normal size limits Inferior Vena Cava: Visualized portions are normal Main Portal Vein: 1.3 cm, normal size with hepatopetal flow. FREE FLUID: None IMPRESSION: Hepatic steatosis. Status post cholecystectomy. Signed by: Xenia Dukes MD on 06/16/2019 3:09 PM Dictated By: XENIA DUKES MD 1509 Transcribed By: AUBREY on 06/16/19 1509 COPY TO: KORTNEY CASEY MD CT ABDOMEN/PELVIS W 2019-06-02 00:45:00 [place] [id number] Patient Name: ZAKIYA ORR MR #: [id number] : 1950 Age/Sex: 69/F Req #: [id number] Adm Physician: Ordered by: LINNETTE TELLEZ MD Report #: [id number] Location: ER Room/Bed: Procedure: [id number] CT/CT ABDOMEN/PELVIS W Exam Date: 06/02/19 Exam Time: 0015 REPORT STATUS: Signed CT Abdomen And Pelvis with Intravenous Contrast IN DICATION: Substernal chest pain Abd pain [id number] TECHNIQUE: Thin collimation axial images obtained from the diaphragm to the level of the pubic symphysis following the uneventful administration of 100 cc of low osmolar, nonionic intravenous contrast. Dose reduction techniques used: Automated exposure control, adjustment of the mAs and/or kVp according to patient size, standardized low-dose protocol, and/or iterative reconstruction technique. RADIATION DOSE: Total DLP: 780.11 mGy*cm Estimated effective dose: (DLP x 0.015 x size factor) mSv CTDIvol has been reviewed. It is below the limits set by the Radiation Protocol Committee (RPC). COMPARISON: None. ABDOMEN FINDINGS: Lung Bases: Clear. The visualized portions of the mediastinum are normal. Liver: Normal attenuation. No evidence for mass. Gallbladder: Absent. No biliary ductal dilatation. Pancreas: Mild fatty atrophy. No mass or ductal dilatation. Spleen: Normal in size. No evidence of mass. Adrenal Glands: No evidence for mass. Kidneys: Right: Normal enhancement. Low attenuating lesion measures 7 mm and is too small to characterize. No hydronephrosis. Left: Normal enhancement. No soft tissue mass. No hydronephrosis. Lymph Nodes: No enlarged abdominal or retroperitoneal lymph nodes. Aorta: Normal in diameter with scattered calcifications PELVIS FINDINGS: Bowel: Stomach: Normal. Small Bowel: Normal in caliber with normal wall thickness. Large Bowel: There are a few scattered diverticula. No associated inflammation. The descending colon is displaced anteriorly and medially by a fat attenuating mass described below. Appendix: Normal appendix. Bladder: Under distended but otherwise normal. The uterus is present and normal in morphology. No adnexal mass. A linear hyperdensity along the mid body to the right of midline represent a clip. Peritoneum/retroperitoneum: No free fluid or fluid collection. Fat attenuating retroperitoneal mass in the left hemiabdomen measures 12.6 x 12.1 x 21.7 cm and extends into the upper left thigh involving the iliopsoas. There are a few wispy bands of soft tissue within. No calcifications. Bones: Unremarkable. IMPRESSION: 1. Scattered colonic diverticula. No evidence for bowel obstruction or inflammation. Normal appendix. 2. Large fat attenuating mass in the left retroperitoneum stenting of the upper left thigh suggestive of a lipoma. 3. Cholecystectomy. Normal biliary tree. Signed by: Dr. Jose D Adrian MD on 06/02/2019 12:53 AM Dictated By: JOSE D ADRIAN MD Transcribed By: AUBREY on 06/02/1952 COPY TO: LINNETTE TELLEZ MD CHEST 2 VIEWS 2019-06-01 23:17:00 [place] [address] Patient Name: ZAKIYA ORR MR #: [id number] : 1950 Age/Sex: 69/F Req #: [id number] Adm Physician: Ordered by: LINNETTE TELLEZ MD Report #: [id number] Location: ER Room/Bed: Procedure: [id number] DX/CHEST 2 VIEWS Exam Date: Exam Time: REPORT STATUS: Signed EXAMINATION: CHEST 2 VIEWS INDICATION: CHEST PAIN COMP ARISON: None FINDINGS: PA and lateral views TUBES and LINES: None. LUNGS: Lungs are well inflated. There is no evidence of pneumonia or pulmonary edema. PLEURA: No pleural effusion or pneumothorax. Central eventration of the right diaphragm. HEART AND MEDIASTINUM: The cardiomediastinal silhouette is unremarkable. BONES AND SOFT TISSUES: No focal osseous lesions. Soft tissues are unremarkable. UPPER ABDOMEN: No free air under the diaphragm. Cholecystectomy clips. IMPRESSION: No acute thoracic abnormality. Signed by: Dr. Jose D Adrian MD on 06/01/2019 11:19 PM Dictated By: JOSE D ADRIAN MD 18 Transcribed By: AUBREY on 06/01/192318 COPY TO: LINNETTE TELLEZ MD
--- OUTSIDE RECORDS SUMMARY | 2019-08-03 06:06 | XMS REPORT ---
Author Author Mitch Moise Organization [employer] Address Unknown Phone Unavailable Care Team Providers Care Induction Machine Setter Name Role Phone Mitch Moise CP Unavailable Allergies, Adverse Reactions, Alerts Substance Reaction Event Type N.K.D.A. Info Not Available Non Drug Allergy Problems Problem Type Condition Code Onset Dates Condition Status Problem Hyperlipidemia E78.5 Active Problem Meniere's disease H81.09 Active Problem BMI 36.0-36.9,adult Z68.36 Active Assessment Asymptomatic postmenopausal estrogen deficiency Z78.0 Active Problem Anxiety F41.9 Active Assessment Osteopenia of multiple sites M85.89 Active Problem Osteopenia of multiple sites M85.89 Active Problem Insomnia G47.00 Active Problem Hypothyroidism E03.9 Active Problem Prediabetes R73.09 Active Problem Depression F32.9 Active Assessment Meniere's disease H81.09 Active Assessment Elevated blood-pressure reading without diagnosis of hypertension R03.0 Active Assessment Breast cancer screening Z12.39 Active Assessment Bronchitis J40 Active Assessment Hypothyroidism E03.9 Active Assessment Hyperlipidemia E78.5 Active Assessment Anxiety F41.9 Active Assessment Colon cancer screening Z12.11 Active Assessment Prediabetes R73.09 Active Assessment Physical exam Z00.00 Active Medications Medication Code System Code Instructions Start Date End Date Status Dosage Triamterene-HCTZ [facility] [address]-04 25-37.5 MG Orally Once a day March 12, 2017 Active 1 tablet in the morning ProAir HFA [facility] 48621823954 108 (90 Base) MCG/ACT Inhalation every 6 hrs Jul 23, 2018 Active 2 puffs as needed Valium [facility] 81668459221 5 MG Orally Once a day Oct 06, 2017 Active 1 tablet as needed Zolpidem Tartrate ER [facility] 14495632403 12.5 MG Orally q hs prn March 15, 2013 Active 1 tablet Escitalopram Oxalate [facility] 55022687760 10 mg orally Once a day Active 1 tablet Pravastatin Sodium [facility] 37388776353 40 mg Orally Once a day Active 1 tablet Lipitor [facility] 83557422614 10 mg Orally Once a day Sep 29, 2018 Active 1 tablet Omeprazole [facility] 96076006200 40 MG Orally Once a day Active 1 capsule Sertraline HCl [facility] 55560990933 50 mg Orally Once a day June 03, 2019 Active 1 tablet Synthroid [facility] 57560629724 100 MCG Orally Once a day Active 1 tablet on an empty stomach in the morning ProAir HFA [facility] 00924010162 108 (90 Base) MCG/ACT Inhalation every 6 hrs Jul 23, 2018 Active 2 puffs as needed Triamterene-HCTZ [facility] 05898816562 37.5-25 MG Active TAKE ONE (1) CAPSULE(S) BY MOUTH EVERY MORNING. Vital Signs Date/Time: June 03, 2019 BMI 40.56 Index Weight 229 lbs Height 63 in Cardiac Monitoring Heart Rate 70 /min Blood Pressure Diastolic 68 mm Hg Blood Pressure Systolic 124 mm Hg Results Name Result Date Reference Range Unit Abnormality Flag TSH ----TSH 3.26 20190603 0.40-4.50 mIU/L N LIPID PANEL ----CHOL/HDLC RATIO 3.1 52923587 <5.0 (calc) N ----LDL-CHOLESTEROL 80 49458246 mg/dL (calc) N ----NON HDL CHOLESTEROL 103 86626634 <130 mg/dL (calc) N ----CHOLESTEROL, TOTAL 153 20190603 <200 mg/dL N ----TRIGLYCERIDES 135 83638084 <150 mg/dL N ----HDL CHOLESTEROL 50 92294068 >50 mg/dL L BONE DENSITY HEMOGLOBIN A1c WITH eAG ----eAG (mg/dL) 117 20190603 (calc) ----eAG (mmol/L) 6.5 20190603 (calc) ----HEMOGLOBIN A1c 5.7 32443497 <5.7 % of total Hgb H URINALYSIS, COMPLETE ----BILIRUBIN NEGATIVE 30656477 NEGATIVE N ----GLUCOSE NEGATIVE 20190603 NEGATIVE N ----PH 5.5 23728059 5.0-8.0 N ----SPECIFIC GRAVITY 1.006 20190603 1.001-1.035 N ----PROTEIN NEGATIVE 73569468 NEGATIVE N ----OCCULT BLOOD NEGATIVE 39071839 NEGATIVE N ----KETONES NEGATIVE 20190603 NEGATIVE N ----WBC 0-5 62414880 < OR=5 /HPF N ----RBC NONE SEEN 20190603 < OR=2 /HPF N ----SQUAMOUS EPITHELIAL CELLS NONE SEEN 37163823 < OR=5 /HPF N ----BACTERIA NONE SEEN 20190603 NONE SEEN /HPF N ----APPEARANCE CLEAR 20190603 CLEAR N ----COLOR YELLOW 20190603 YELLOW N ----NITRITE NEGATIVE 20190603 NEGATIVE N ----LEUKOCYTE ESTERASE TRACE 20190603 NEGATIVE A ----HYALINE CAST NONE SEEN 20190603 NONE SEEN /LPF N T4, FREE ----T4, FREE 1.3 20190603 0.8-1.8 ng/dL N CBC (INCLUDES DIFF/PLT) ----HEMOGLOBIN 13.4 41013290 11.7-15.5 g/dL N ----RED BLOOD CELL COUNT 4.32 04290074 3.80-5.10 Million/uL N ----MCV 90.7 00801320 80.0-100.0 fL N ----HEMATOCRIT 39.2 70691354 35.0-45.0 % N ----MCHC 34.2 08482193 32.0-36.0 g/dL N ----MCH 31.0 93264450 27.0-33.0 pg N ----PLATELET COUNT 215 98181845 140-400 Thousand/uL N ----RDW 12.6 12064031 11.0-15.0 % N ----MPV 13.2 76885316 7.5-12.5 fL H ----ABSOLUTE LYMPHOCYTES 2098 96707246 850-3900 cells/uL N ----ABSOLUTE NEUTROPHILS 4945 32447950 4184-5063 cells/uL N ----ABSOLUTE EOSINOPHILS 289 51085114 15-500 cells/uL N ----ABSOLUTE MONOCYTES 398 61963541 200-950 cells/uL N ----NEUTROPHILS 63.4 13899703 % N ----WHITE BLOOD CELL COUNT 7.8 81958904 3.8-10.8 Thousand/uL N ----BASOPHILS 0.9 33245962 % N ----ABSOLUTE BASOPHILS 70 55286124 0-200 cells/uL N ----EOSINOPHILS 3.7 16015730 % N ----LYMPHOCYTES 26.9 62342476 % N ----MONOCYTES 5.1 87641524 % N Summary Purpose [employer] Submission
[2019-08-03 10:02] VITALS: BP 143/71
--- NOTE | 2019-08-03 13:44 | Operative Report ---
DATE OF PROCEDURE: 08/03/2019 SURGEON: Rogelio Thornton MD PROCEDURES: EGD with biopsies and colonoscopy with polypectomy. INDICATIONS FOR EGD: Upper abdominal pain, heartburn. INDICATION FOR COLONOSCOPY: Colorectal cancer screening. MEDICATIONS: The patient was done under MAC, please see anesthesiologist's note. PROCEDURE IN DETAIL: With the patient in left lateral decubitus position, a flexible fiberoptic Olympus gastroscope was introduced into the esophagus under direct visualization without any difficulty. There was some patchy erythema noted in distal esophagus. The scope was then advanced with ease into the stomach. Mucosa overlying the antrum and the body revealed some patchy erythema and fzaa-sy-gztmnyth edema, and biopsies were obtained and sent to stain for H. pylori. Pylorus was of normal contour and shape, it was intubated with ease and the scope was advanced all the way to the second portion of the duodenum. Biopsies were obtained from the second portion and duodenal bulb to rule out sprue. Also, a minute nodule was noted in the second portion distal to the ampulla and that was biopsied. The scope was then brought back into the stomach and retroflexed and a minute submucosal nodule was noted in the fundus that was biopsied. The scope was then straightened out, it was subsequently withdrawn, and the patient tolerated the procedure well. IMPRESSION: 1. Distal esophagitis, mild. 2. Gastritis, biopsied, biopsies sent to stain for H. pylori. 3. Submucosal nodule, fundus, biopsied. 4. Rule out sprue. 5. Minute nodule, second portion of duodenum, distal to ampulla, biopsied. PLAN: Follow up histology. Initiate Protonix 40 mg one p.o. q.a.m. before meals. The patient was then turned around and after adequate lubrication of the anal canal, a flexible fiberoptic Olympus colonoscope was inserted into the rectum with ease and advanced all the way to the cecum. It was then withdrawn slowly. Mucosa overlying the cecum, ascending colon, and transverse colon appeared to be within normal limits. A minute polyp was removed per the cold biopsy forceps from the proximal descending colon. Two polyps were hot biopsied from the sigmoid and two polyps were hot biopsied from the rectum. The scope was then retroflexed into the distal rectum and small internal hemorrhoids were noted, none of which was actively bleeding. The scope was then straightened out, it was subsequently withdrawn, and the patient tolerated the procedure well. IMPRESSION: 1. Descending colon polyp, removed per cold biopsy forceps. 2. Sigmoid colon polyps x2, hot biopsied. 3. Rectal polyps x2, hot biopsied. 4. Internal hemorrhoids, none actively bleeding. PLAN: Follow up histology. Initiate high-fiber, low-fat diet. Initiate high-fiber supplement. The patient might benefit from a followup colonoscopy in 3 years. Rogelio Thornton MD [facility] [place]/MODL /[id number] cc: Carina Eaton DO
== END | disposition home or self-care (01) ==
LOC: OR 06:00
PROVIDERS: ATTEND Internal Medicine Gastroenterology
DX: Z12.11 Encounter for screening for malignant neoplasm of colon (principal); K63.5 Polyp of colon; K62.1 Rectal polyp; K29.50 Unspecified chronic gastritis without bleeding; K29.80 Duodenitis without bleeding; K58.9 Irritable bowel syndrome, unspecified; K21.9 Gastro-esophageal reflux disease without esophagitis; K31.89 Other diseases of stomach and duodenum; K20.9 Esophagitis, unspecified; K64.8 Other hemorrhoids; I10 Essential (primary) hypertension; E78.5 Hyperlipidemia, unspecified; E03.9 Hypothyroidism, unspecified; Z01.812 Encounter for preprocedural laboratory examination
CPT/HCPCS: 36415; 43239; 45380; 45384; 85025; 88305; 88312; J2250; J2704; J3010; 45378

== ENCOUNTER 2019-08-12 18:01 | Inpatient (IN) | payer MEDICARE, OTHER ==
[~2019-08-12] VITALS: Ht 160 cm; Wt 104.8 kg
[~2019-08-12 18:01] MED LIST changes: -ANUCORT-HC25 MG RC; -ASCORBIC ACID500 M2 PO; -FENTANYL CITRATE/PF 100MCG/2 ML INJ ONE; -FERROUS SULFAT325 MG PO; -HYOSCYAMINE 0.125 MG TAB ONE; -MIDAZOLAM HCL 2 MG/2 ML VIAL ONE; -PROPOFOL IV EMULSION 10 MG/ML 50 ML VIAL ONE
--- OUTSIDE RECORDS SUMMARY | 2019-08-12 18:04 | XMS REPORT | Continuity of Care Document ---
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 Phone [employer] Unavailable Unavailable Problems Problem Status [...] Active 50 mg Orally Once a day Superior 06/03/2019 [facility] Lipitor 1 tablet Orally Active 10 mg Orally Once a day Superior 09/29/2018 [facility] Synthroid 1 tablet on an empty stomach in the morning Orally Active 100 MCG Orally Once a day Superior 09/29/2018 [facility] Bromfed DM 10 ml as needed Orally Active 30-2-10 MG/5ML Orally every 4 hrs Superior 08/10/2018 [facility] Ceftin 1 tablet Orally Active 250 MG Orally Twice a day Superior 07/23/2018 [facility] ProAir HFA 2 puffs as needed Inhalation Active 108 (90 Base) MCG/ACT Inhalation every 6 hrs Superior 07/23/2018 [facility] Valium 1 tablet as needed Orally Active 5 MG Orally Once a day Superior 10/06/2017 [facility] Triamterene-HCTZ 1 tablet in the morning Orally Active 25-37.5 MG Orally Once a day Superior 03/12/2017 [facility] Bentyl 1 capsule Orally Active 10 mg Orally four times a day (qid) Uma 11/13/2015 [facility] Belviq 1 tablet Orally Active 10 mg Orally Twice a day Liz 06/07/2015 [facility] Pravastatin Sodium 1 tablet Orally Active 40 mg Orally Once a day Samson[place]ings 07/05/2014 [facility] Synthroid 1 tablet on an empty stomach in the morning Orally Active 75 MCG Orally Once a day SamsonBillings 07/05/2014 [facility] Analpram Advanced as directed Combination Active 2.5-1 % Combination as directed Liz 07/13/2013 [facility] Synthroid 1 tablet Orally No Longer Active 50 MCG Orally Once a day MUST SEE DOCTOR BEFORE NEXT REFILL Geovanna 07/12/2013 [facility] Escitalopram Oxalate 1 tablet by mouth Active 10 mg by mouth Once a day Sai 05/06/2013 [facility] Zolpidem Tartrate ER 1 tablet Orally Active 12.5 MG Orally once every night as needed Samson Odom 03/15/2013 [facility] Zolpidem Tartrate ER 1 tablet Orally Active 12.5 MG Orally q hs prn Jose Maria 03/15/2013 [facility] Synthroid 1 tablet Orally Active 75 MCG Orally Once a day Sai [facility] Pravastatin Sodium 1 tablet Orally Active 40 mg Orally Once a day Sai [facility] Escitalopram Oxalate 1 tablet orally Active 10 mg orally Once a day Jose Maria [facility] Synthroid 1 tablet Orally Active 75 MCG Orally Once a day Jose Maria [facility] Synthroid 1 tablet on an empty stomach in the morning Orally Active 100 MCG Orally Once a day Davies [facility] Pravastatin Sodium 1 tablet Orally Active 40 mg Orally Once a day Jose Maria [facility] Pravastatin Sodium TAKE 1 TABLET ONCE A DAY ORALLY NA No [facility]er [facility] Lexapro TAKE 1-2 TABLETS BY MOUTH EVERYDAY NA Active 10 MG Liz [facility] Omeprazole 1 capsule Orally Active 40 MG Orally Once a day Jose Maria [facility] Synthroid 1 tablet on an empty stomach in the morning Orally Active 100 MCG Orally Once a day Jose Maria [facility] Triamterene-HCTZ TAKE ONE (1) CAPSULE(S) BY MOUTH EVERY MORNING. NA Active 37.5-[address] [facility] Allergies, Adverse Reactions, Alerts Substance Category Reaction Severity Reaction type Status Date Reported Comments Source N.K.D.A. Adverse Reaction Info Not Available Adverse Reaction Active 06/03/2019 [facility] Immunizations No Data Provided for This [...] Value Date Comments Source Weight 229 06/03/2019 [facility] Height 63 06/03/2019 [facility] Heart Rate [...] Provider ADM Date DC Date Status Source [facility] med refill [id number] 06/21/2014 06/21/2014 [facility] med refill [id number] 06/21/2014 06/21/2014 [facility] med refill [id number] 06/21/2014 06/21/2014 [facility] med refill [id number] 06/21/2014 06/21/2014 [facility] med refill [id number] 06/21/2014 06/21/2014 [facility] med refill [id number] 06/21/2014 06/21/2014 [facility] med refill [id number] 06/21/2014 06/21/2014 [facility] med refill [id number] 06/21/2014 06/21/2014 [facility] med refill [id number] 06/21/2014 06/21/2014 [facility] med refill [id number] 06/21/2014 06/21/2014 [facility] med refill [id number] 06/21/2014 06/21/2014 [facility] med refill [id number] 06/21/2014 06/21/2014 [facility] med refill [id number] 06/21/2014 06/21/2014 [facility] med refill [id number] 06/21/2014 06/21/2014 [facility] med refill [id number] 06/21/2014 06/21/2014 [facility] med refill [id number] 06/21/2014 06/21/2014 [facility] Test results [id number] 07/05/2014 07/05/2014 [facility] Test results [id number] 07/05/2014 07/05/2014 [facility] Test results [id number] 07/05/2014 07/05/2014 [facility] Test results [id number] 07/05/2014 07/05/2014 [facility] Test results [id number] 07/05/2014 07/05/2014 [facility] Test results [id number] 07/05/2014 07/05/2014 [facility] Test results [id number] 07/05/2014 07/05/2014 [facility] Test results [id number] 07/05/2014 07/05/2014 [facility] Test results [id number] 07/05/2014 07/05/2014 [facility] Test results [id number] 07/05/2014 07/05/2014 [facility] Test results [id number] 07/05/2014 07/05/2014 [facility] Test results [id number] 07/05/2014 07/05/2014 [facility] Test results [id number] 07/05/2014 07/05/2014 [facility] Test results [id number] 07/05/2014 07/05/2014 [facility] Test results [id number] 07/05/2014 07/05/2014 [facility] Test results [id number] 07/05/2014 07/05/2014 [facility] Unknown [id number] 09/21/2014 09/21/2014 [facility] Unknown [id number] 09/21/2014 09/21/2014 [facility] Unknown [id number] 09/21/2014 09/21/2014 [facility] Unknown [id number] 09/21/2014 09/21/2014 [facility] Unknown [id number] 09/21/2014 09/21/2014 [facility] Unknown [id number] 09/21/2014 09/21/2014 [facility] Unknown [id number] 09/21/2014 09/21/2014 [facility] Unknown [id number] 09/21/2014 09/21/2014 [facility] Unknown [id number] 09/21/2014 09/21/2014 [facility] Unknown [id number] 09/21/2014 09/21/2014 [facility] Unknown [id number] 09/21/2014 09/21/2014 [facility] Unknown [id number] 09/21/2014 09/21/2014 [facility] Unknown [id number] 09/21/2014 09/21/2014 [facility] Unknown [id number] 09/21/2014 09/21/2014 [facility] Unknown [id number] 11/10/2014 11/10/2014 [facility] Unknown [id number] 11/10/2014 11/10/2014 [facility] Unknown [id number] 11/10/2014 11/10/2014 [facility] Unknown [id number] 11/10/2014 11/10/2014 [facility] Unknown [id number] 11/10/2014 11/10/2014 [facility] Unknown [id number] 11/10/2014 11/10/2014 [facility] Unknown [id number] 11/10/2014 11/10/2014 [facility] Unknown [id number] 11/10/2014 11/10/2014 [facility] Unknown [id number] 11/10/2014 11/10/2014 [facility] Unknown [id number] 11/10/2014 11/10/2014 [facility] Unknown [id number] 11/10/2014 11/10/2014 [facility] Unknown [id number] 11/10/2014 11/10/2014 [facility] Unknown [id number] 11/10/2014 11/10/2014 [facility] Refill [id number] 12/19/2014 12/19/2014 [facility] Refill [id number] 12/19/2014 12/19/2014 [facility] Refill [id number] 12/19/2014 12/19/2014 [facility] Refill [id number] 12/19/2014 12/19/2014 [facility] Refill [id number] 12/19/2014 12/19/2014 [facility] Refill [id number] 12/19/2014 12/19/2014 [facility] Refill [id number] 12/19/2014 12/19/2014 [facility] Refill [id number] 12/19/2014 12/19/2014 [facility] Refill [id number] 12/19/2014 12/19/2014 [facility] Refill [id number] 12/19/2014 12/19/2014 [facility] Refill [id number] 12/19/2014 12/19/2014 [facility] Refill [id number] 12/19/2014 12/19/2014 [facility] Unknown [id number] 03/23/2015 03/23/2015 [facility] Unknown [id number] 03/23/2015 03/23/2015 [facility] Unknown [id number] 03/23/2015 03/23/2015 [facility] Unknown [id number] 03/23/2015 03/23/2015 [facility] Unknown [id number] 03/23/2015 03/23/2015 [facility] Unknown [id number] 03/23/2015 03/23/2015 [facility] Unknown [id number] 03/23/2015 03/23/2015 [facility] Unknown [id number] 03/23/2015 03/23/2015 [facility] Unknown [id number] 03/23/2015 03/23/2015 [facility] Unknown [id number] 03/23/2015 03/23/2015 [facility] Unknown [id number] 03/23/2015 03/23/2015 [facility] med refill [id number] 06/07/2015 06/07/2015 [facility] med refill [id number] 06/07/2015 06/07/2015 [facility] med refill [id number] 06/07/2015 06/07/2015 [facility] med refill [id number] 06/07/2015 06/07/2015 [facility] med refill [id number] 06/07/2015 06/07/2015 [facility] med refill [id number] 06/07/2015 06/07/2015 [facility] med refill [id number] 06/07/2015 06/07/2015 [facility] med refill [id number] 06/07/2015 06/07/2015 [facility] med refill [id number] 06/07/2015 06/07/2015 [facility] med refill [id number] 06/07/2015 06/07/2015 [facility] med refill [id number] 06/07/2015 06/07/2015 [facility] Refill [id number] 06/18/2015 06/18/2015 [facility] Refill [id number] 06/18/2015 06/18/2015 [facility] Refill [id number] 06/18/2015 06/18/2015 [facility] Refill [id number] 06/18/2015 06/18/2015 [facility] Refill [id number] 06/18/2015 06/18/2015 [facility] Refill [id number] 06/18/2015 06/18/2015 [facility] Refill [id number] 06/18/2015 06/18/2015 [facility] Refill [id number] 06/18/2015 06/18/2015 [facility] Refill [id number] 06/18/2015 06/18/2015 [facility] Refill [id number] 06/18/2015 06/18/2015 [facility] LAB RESULTS [id number] 08/13/2015 08/13/2015 [facility] RESULTS [id number] 08/13/2015 08/13/2015 [facility] RESULTS [id number] 08/13/2015 08/13/2015 [facility] RESULTS [id number] 08/13/2015 08/13/2015 [facility] RESULTS [id number] 08/13/2015 08/13/2015 [facility] RESULTS [id number] 08/13/2015 08/13/2015 [facility] RESULTS [id number] 08/13/2015 08/13/2015 [facility] RESULTS [id number] 08/13/2015 08/13/2015 [facility] RESULTS [id number] 08/13/2015 08/13/2015 [facility] Refill [id number] 08/14/2015 08/14/2015 [facility] Refill [id number] 08/14/2015 08/14/2015 [facility] Refill [id number] 08/14/2015 08/14/2015 [facility] Refill [id number] 08/14/2015 08/14/2015 [facility] Refill [id number] 08/14/2015 08/14/2015 [facility] Refill [id number] 08/14/2015 08/14/2015 [facility] Refill [id number] 08/14/2015 08/14/2015 [facility] Refill [id number] 08/14/2015 08/14/2015 [facility] Refill [id number] 08/14/2015 08/14/2015 [facility] Unknown [id number] 08/14/2015 08/14/2015 [facility] Unknown [id number] 08/14/2015 08/14/2015 [facility] Unknown [id number] 08/14/2015 08/14/2015 [facility] Unknown [id number] 08/14/2015 08/14/2015 [facility] Unknown [id number] 08/14/2015 08/14/2015 [facility] Unknown [id number] 08/14/2015 08/14/2015 [facility] Unknown [id number] 08/14/2015 08/14/2015 [facility] Unknown [id number] 08/14/2015 08/14/2015 [facility] Unknown [id number] 08/14/2015 08/14/2015 [facility] NATHAN)-UA [id number] 08/23/2015 08/23/2015 [facility] NATHAN)-UA [id number] 08/23/2015 08/23/2015 [facility] NATHAN)-UA [id number] 08/23/2015 08/23/2015 [facility] NATHAN)-UA [id number] 08/23/2015 08/23/2015 [facility] NATHAN)-UA [id number] 08/23/2015 08/23/2015 [facility] NATHAN)-UA [id number] 08/23/2015 08/23/2015 [facility] NVSCOTT)-UA [id number] 08/23/2015 08/23/2015 [facility] NATHAN)-UA [id number] 08/23/2015 08/23/2015 [facility] NVSCOTT)-UA [id number] 08/23/2015 08/23/2015 [facility] Refill [id number] 09/10/2015 09/10/2015 [facility] Refill [id number] 09/10/2015 09/10/2015 [facility] Refill [id number] 09/10/2015 09/10/2015 [facility] Refill [id number] 09/10/2015 09/10/2015 [facility] Refill [id number] 09/10/2015 09/10/2015 [facility] Refill [id number] 09/10/2015 09/10/2015 [facility] Refill [id number] 09/10/2015 09/10/2015 [facility] Refill [id number] 09/10/2015 09/10/2015 [facility] Refill [id number] 09/10/2015 09/10/2015 [facility] Unknown [id number] 09/11/2015 09/11/2015 [facility] Unknown [id number] 09/11/2015 09/11/2015 [facility] Unknown [id number] 09/11/2015 09/11/2015 [facility] Unknown [id number] 09/11/2015 09/11/2015 [facility] Unknown [id number] 09/11/2015 09/11/2015 [facility] Unknown [id number] 09/11/2015 09/11/2015 [facility] Unknown [id number] 09/11/2015 09/11/2015 [facility] Unknown [id number] 09/11/2015 09/11/2015 [facility] Unknown [id number] 09/11/2015 09/11/2015 [facility] Unknown [id number] 10/08/2015 10/08/2015 [facility] Unknown [id number] 10/08/2015 10/08/2015 [facility] Unknown [id number] 10/08/2015 10/08/2015 [facility] Unknown [id number] 10/08/2015 10/08/2015 [facility] Unknown [id number] 10/08/2015 10/08/2015 [facility] Unknown [id number] 10/08/2015 10/08/2015 [facility] Unknown [id number] 10/08/2015 10/08/2015 [facility] Unknown [id number] 10/08/2015 10/08/2015 [facility] Unknown [id number] 10/08/2015 10/08/2015 [facility] Unknown [id number] 10/09/2015 10/09/2015 [facility] Unknown [id number] 10/09/2015 10/09/2015 [facility] Unknown [id number] 10/09/2015 10/09/2015 [facility] Unknown [id number] 10/09/2015 10/09/2015 [facility] Unknown [id number] 10/09/2015 10/09/2015 [facility] Unknown [id number] 10/09/2015 10/09/2015 [facility] Unknown [id number] 10/09/2015 10/09/2015 [facility] Unknown [id number] 10/09/2015 10/09/2015 [facility] Unknown [id number] 10/09/2015 10/09/2015 [facility] Unknown [id number] 11/13/2015 11/13/2015 [facility] Unknown [id number] 11/13/2015 11/13/2015 [facility] Unknown [id number] 11/13/2015 11/13/2015 [facility] Unknown [id number] 11/13/2015 11/13/2015 [facility] Unknown [id number] 11/13/2015 11/13/2015 [facility] Unknown [id number] 11/13/2015 11/13/2015 [facility] Unknown [id number] 11/13/2015 11/13/2015 [facility] [place] [id number] 01/07/2016 01/07/2016 [facility] RF [id number] 01/07/2016 01/07/2016 [facility] RF [id number] 01/07/2016 01/07/2016 [facility] RF [id number] 01/07/2016 01/07/2016 [facility] [place] [id number] 01/07/2016 01/07/2016 [facility] RF [id number] 01/07/2016 01/07/2016 [facility] medication [id number] 03/25/2016 03/25/2016 [facility] medication [id number] 03/25/2016 03/25/2016 [facility] medication [id number] 03/25/2016 03/25/2016 [facility] medication [id number] 03/25/2016 03/25/2016 [facility] medication [id number] 03/25/2016 03/25/2016 [facility] [place] APPROVED- Rx Escitalopram 10 mg [id number] 04/18/2016 04/18/2016 [facility] [place] APPROV[place]- Rx Escitalopram 10 mg [id number] 04/18/2016 04/18/2016 [facility] APPROVED- Rx Escitalopram 10 mg [id number] 04/18/2016 04/18/2016 [facility] [place] [facility]PROV[facility]- Rx Escitalopram 10 mg [id number] 04/18/2016 04/18/2016 [facility] Refill [id number] 06/19/2016 06/19/2016 [facility] Refill [id number] 06/19/2016 06/19/2016 [facility] Refill [id number] 06/19/2016 06/19/2016 [facility] Refill [id number] 06/24/2016 06/24/2016 [facility] Refill [id number] 06/24/2016 06/24/2016 [facility] [place] Rx Zolpidem [id number] 06/30/2016 06/30/2016 [facility] Procedures No Data Provided for This Section Assessment and Plan No Data Provided for This Section Plan of Care No Data Provided for This Section Social History Social History Date Source Social History ElementQualifiersDate Reported Occupation: . Retired March 25, 2016 Last Colonoscopy: . never March 25, 2016 Depression Screening: . negative March 25, 2016 Ethnicity . Status , Is [place] your primary language? Yes March 25, 2016 [...] . Status: No March 25, 2016 03/25/2016 [facility] Family History Value Date Source QualifierDescriptionCommentDate Reported [...]
[2019-08-12] MEDS ORDERED: SODIUM CHLORIDE 0.9% 1000ML 1,000 ML IV STA (18:19)
[2019-08-12] MEDS ORDERED: ONDANSETRON HCL INJ 2MG/ML 2ML 2 MG/ML VIAL IV ONE (18:52)
[2019-08-12 18:56] LABS: BASOPHILS # (AUTO) 0.1 (0.0-0.1); BASOPHILS % 0.4 % (0.0-1.0); EOSINOPHILS # (AUTO) 0.3 (0.0-0.4); HEMATOCRIT 37.3 % (34.2-44.1); HEMOGLOBIN 12.3 g/dL (12.0-16.0); LYMPHOCYTES # (AUTO) 2.8 (1.0-3.2); LYMPHOCYTES % 20.9 % (18.0-39.1); MEAN CORPUSCULAR HEMOGLOBIN 30.6 pg (28-32); MEAN CORPUSCULAR VOLUME 92.8 fL (81-99); MONOCYTES # (AUTO) 0.5 (0.2-0.8); MONOCYTES % 3.9 % (4.4-11.3); NEUTROPHILS # (AUTO) 9.6 (2.1-6.9); NEUTROPHILS % 72.3 % (38.7-80.0); PLATELET COUNT 270 x10e3/uL (140-360); RED BLOOD COUNT 4.02 x10e6/uL (3.6-5.1); RED CELL DISTRIBUTION WIDTH 13.2 % (11.7-14.4)
[2019-08-12 18:58] LABS: INR 0.92; PROTHROMBIN TIME 12.8 seconds (11.9-14.5)
[2019-08-12 18:59] LABS: PARTIAL THROMBOPLASTIN TIME 26.4 seconds (23.8-35.5)
[2019-08-12 19:11] LABS: ALBUMIN 3.2 g/dL (3.5-5.0); ANION GAP 12.6 mmol/L (8-16); CALCIUM 9.2 mg/dL (8.4-10.2); CREATININE, SERUM 0.97 mg/dL (0.57-1.11); POTASSIUM 3.6 mmol/L (3.5-5.1)
[2019-08-12 19:17] LABS: CREATINE KINASE MB 2.2 ng/mL (0-5.0)
--- NOTE | 2019-08-12 20:50 | Diagnostic Imaging Report ---
EXAMINATION: CHEST SINGLE (PORTABLE) INDICATION: ^ERMD ORDER ^[id number] ^1998 ^Y COMPARISON: Chest radiograph 06/01/[address] abdomen and pelvis 08/12/2019 FINDINGS: AP view TUBES and LINES: None. LUNGS: Lungs are well inflated. Lungs are clear. There is no evidence of pneumonia or pulmonary edema. PLEURA: No pleural effusion or pneumothorax. HEART AND MEDIASTINUM: Stable prominent cardiac silhouette. BONES AND SOFT TISSUES: No acute osseous lesion. Soft tissues are unremarkable. UPPER ABDOMEN: No free air under the diaphragm. IMPRESSION: Prominent convex silhouette without pulmonary decompensation. Signed by: Dr. Tuyet Desai M.D. on 08/12/2019 8:46 PM
--- NOTE | 2019-08-12 20:57 | Diagnostic Imaging Report ---
EXAM: CT Abdomen and Pelvis WITH contrast INDICATION: ^rectal bleeding ^[id number] ^1949 COMPARISON: CT abdomen and pelvis 06/02/2019 and abdominal ultrasound 06/16/2019 TECHNIQUE: Abdomen and pelvis were scanned utilizing a multidetector helical scanner from the lung base to the pubic symphysis after administration of IV contrast. Coronal and sagittal reformations were obtained. Routine protocol was performed. Scan was performed when during portal venous phase. IV CONTRAST: 100 mL of Isovue-370 ORAL CONTRAST: Water RADIATION DOSE: Total DLP: 798.4 mGy*cm Estimated effective dose: (DLP x 0.015 x size factor) mSv COMPLICATIONS: None FINDINGS: LINES and TUBES: None. LOWER THORAX: Unremarkable HEPATOBILIARY: No focal hepatic lesions. No biliary ductal dilation. GALLBLADDER: Cholecystectomy. SPLEEN: No splenomegaly. PANCREAS: No focal masses or ductal dilatation. ADRENALS: No adrenal nodules KIDNEYS/URETERS: Kidneys enhance symmetrically. No hydronephrosis. No cystic or solid mass lesions. No stones. GI TRACT: No abnormal distention, wall thickening, or evidence of bowel obstruction. 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 No internal septations or nodularity. Scattered diverticulosis throughout the colon without diverticulitis. Appendix is normal. PELVIC ORGANS/BLADDER: Unremarkable. LYMPH NODES: No lymphadenopathy. VESSELS: Unremarkable. PERITONEUM / RETROPERITONEUM: No free air or fluid. BONES: Unremarkable. SOFT TISSUES: Unremarkable. IMPRESSION: No acute abnormalities in the abdomen and pelvis. Stable diverticulosis throughout the colon. Cholecystectomy. 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 Signed by: Dr. Tuyet Desai M.D. on 08/12/2019 8:53 PM
[2019-08-12] MEDS ORDERED: SODIUM CHLORIDE 0.9% 50ML 50 ML ONE (21:06)
[2019-08-12] MEDS ORDERED: IOPAMIDOL 370 MG/ML 200 ML INFUS..BTL INJ ONE (21:06)
--- OUTSIDE RECORDS SUMMARY | 2019-08-12 21:35 | XMS REPORT | Continuity of Care Document ---
Author Author Celsias Address Unknown Phone Unavailable Care Team Providers Care Emissions Inspector Name Role Phone [email or web address] Unavailable Unavailable Problems Problem Status [...] Active 50 mg Orally Once a day Arlee 06/03/2019 [facility] Lipitor 1 tablet Orally Active 10 mg Orally Once a day Arlee 09/29/2018 [facility] Synthroid 1 tablet on an empty stomach in the morning Orally Active 100 MCG Orally Once a day Arlee 09/29/2018 [facility] Bromfed DM 10 ml as needed Orally Active 30-2-10 MG/5ML Orally every 4 hrs Arlee 08/10/2018 [facility] Ceftin 1 tablet Orally Active 250 MG Orally Twice a day Arlee 07/23/2018 [facility] ProAir HFA 2 puffs as needed Inhalation Active 108 (90 Base) MCG/ACT Inhalation every 6 hrs Arlee 07/23/2018 [facility] Valium 1 tablet as needed Orally Active 5 MG Orally Once a day Arlee 10/06/2017 [facility] Triamterene-HCTZ 1 tablet in the morning Orally Active 25-37.5 MG Orally Once a day Arlee 03/12/2017 [facility] Bentyl 1 capsule Orally Active 10 mg Orally four times a day (qid) Uma 11/13/2015 [facility] Belviq 1 tablet Orally Active 10 mg Orally Twice a day Liz 06/07/2015 [facility] Pravastatin Sodium 1 tablet Orally Active 40 mg Orally Once a day SamsonEsko 07/05/2014 [facility] Synthroid 1 tablet on an empty stomach in the morning Orally Active 75 MCG Orally Once a day SamsonEsko 07/05/2014 [facility] Analpram Advanced as directed Combination Active 2.5-1 % Combination as directed Liz 07/13/2013 [facility] Synthroid 1 tablet Orally No Longer Active 50 MCG Orally Once a day MUST SEE DOCTOR BEFORE NEXT REFILL Geovanna 07/12/2013 [facility] Escitalopram Oxalate 1 tablet by mouth Active 10 mg by mouth Once a day Sai 05/06/2013 [facility] Zolpidem Tartrate ER 1 tablet Orally Active 12.5 MG Orally once every night as needed Samson Odom 03/15/2013 [facility] Zolpidem Tartrate ER 1 tablet Orally Active 12.5 MG Orally q hs prn Jose Maria 03/15/2013 [facility] Synthroid 1 tablet Orally Active 75 MCG Orally Once a day Sai [facility] Pravastatin Sodium 1 tablet Orally Active 40 mg Orally Once a day Sai [facility] Escitalopram Oxalate 1 tablet orally Active 10 mg orally Once a day Jose Maria [facility] Synthroid 1 tablet Orally Active 75 MCG Orally Once a day Jose Maria [facility] Synthroid 1 tablet on an empty stomach in the morning Orally Active 100 MCG Orally Once a day [facility] Pravastatin Sodium 1 tablet Orally Active 40 mg Orally Once a day Jose Maria [facility] Pravastatin Sodium TAKE 1 TABLET ONCE A DAY ORALLY NA No Longer Active [facility] Lexapro TAKE 1-2 TABLETS BY MOUTH EVERYDAY NA Active 10 MG Liz [facility] Omeprazole 1 capsule Orally Active 40 MG Orally Once a day Jose Maria [facility] Synthroid 1 tablet on an empty stomach in the morning Orally Active 100 MCG Orally Once a day Jose Maria [facility] Triamterene-HCTZ TAKE ONE (1) CAPSULE(S) BY MOUTH EVERY MORNING. NA Active 37.5-25 MG Jose Maria [facility] Allergies, Adverse Reactions, Alerts Substance Category Reaction Severity Reaction type Status Date Reported Comments Source N.K.D.A. Adverse Reaction Info Not Available Adverse Reaction Active 06/03/2019 [facility] Immunizations No Data Provided [...] Value Date Comments Source Weight 229 06/03/2019 [facility] Height 63 06/03/2019 [facility] Heart Rate [...] Provider ADM Date DC Date Status Source [facility] med refill [id number] 06/21/2014 06/21/2014 [facility] med refill [id number] 06/21/2014 06/21/2014 [facility] med refill [id number] 06/21/2014 06/21/2014 [facility] med refill [id number] 06/21/2014 06/21/2014 [facility] med refill [id number] 06/21/2014 06/21/2014 [facility] med refill [id number] 06/21/2014 06/21/2014 [facility] med refill [id number] 06/21/2014 06/21/2014 [facility] med refill [id number] 06/21/2014 06/21/2014 [facility] med refill [id number] 06/21/2014 06/21/2014 [facility] med refill [id number] 06/21/2014 06/21/2014 [facility] med refill [id number] 06/21/2014 06/21/2014 [facility] med refill [id number] 06/21/2014 06/21/2014 [facility] med refill [id number] 06/21/2014 06/21/2014 [facility] med refill [id number] 06/21/2014 06/21/2014 [facility] med refill [id number] 06/21/2014 06/21/2014 [facility] med refill [id number] 06/21/2014 06/21/2014 [facility] Test results [id number] 07/05/2014 07/05/2014 [facility] Test results [id number] 07/05/2014 07/05/2014 [facility] Test results [id number] 07/05/2014 07/05/2014 [facility] Test results [id number] 07/05/2014 07/05/2014 [facility] Test results [id number] 07/05/2014 07/05/2014 [facility] Test results [id number] 07/05/2014 07/05/2014 [facility] Test results [id number] 07/05/2014 07/05/2014 [facility] Test results [id number] 07/05/2014 07/05/2014 [facility] Test results [id number] 07/05/2014 07/05/2014 [facility] Test results [id number] 07/05/2014 07/05/2014 [facility] Test results [id number] 07/05/2014 07/05/2014 [facility] Test results [id number] 07/05/2014 07/05/2014 [facility] Test results [id number] 07/05/2014 07/05/2014 [facility] Test results [id number] 07/05/2014 07/05/2014 [facility] Test results [id number] 07/05/2014 07/05/2014 [facility] Test results [id number] 07/05/2014 07/05/2014 [facility] Unknown [id number] 09/21/2014 09/21/2014 [facility] Unknown [id number] 09/21/2014 09/21/2014 [facility] Unknown [id number] 09/21/2014 09/21/2014 [facility] Unknown [id number] 09/21/2014 09/21/2014 [facility] Unknown [id number] 09/21/2014 09/21/2014 [facility] Unknown [id number] 09/21/2014 09/21/2014 [facility] Unknown [id number] 09/21/2014 09/21/2014 [facility] Unknown [id number] 09/21/2014 09/21/2014 [facility] Unknown [id number] 09/21/2014 09/21/2014 [facility] Unknown [id number] 09/21/2014 09/21/2014 [facility] Unknown [id number] 09/21/2014 09/21/2014 [facility] Unknown [id number] 09/21/2014 09/21/2014 [facility] Unknown [id number] 09/21/2014 09/21/2014 [facility] Unknown [id number] 09/21/2014 09/21/2014 [facility] Unknown [id number] 11/10/2014 11/10/2014 [facility] Unknown [id number] 11/10/2014 11/10/2014 [facility] Unknown [id number] 11/10/2014 11/10/2014 [facility] Unknown [id number] 11/10/2014 11/10/2014 [facility] Unknown [id number] 11/10/2014 11/10/2014 [facility] Unknown [id number] 11/10/2014 11/10/2014 [facility] Unknown [id number] 11/10/2014 11/10/2014 [facility] Unknown [id number] 11/10/2014 11/10/2014 [facility] Unknown [id number] 11/10/2014 11/10/2014 [facility] Unknown [id number] 11/10/2014 11/10/2014 [facility] Unknown [id number] 11/10/2014 11/10/2014 [facility] Unknown [id number] 11/10/2014 11/10/2014 [facility] Unknown [id number] 11/10/2014 11/10/2014 [facility] Refill [id number] 12/19/2014 12/19/2014 [facility] Refill [id number] 12/19/2014 12/19/2014 [facility] Refill [id number] 12/19/2014 12/19/2014 [facility] Refill [id number] 12/19/2014 12/19/2014 [facility] Refill [id number] 12/19/2014 12/19/2014 [facility] Refill [id number] 12/19/2014 12/19/2014 [facility] Refill [id number] 12/19/2014 12/19/2014 [facility] Refill [id number] 12/19/2014 12/19/2014 [facility] Refill [id number] 12/19/2014 12/19/2014 [facility] Refill [id number] 12/19/2014 12/19/2014 [facility] Refill [id number] 12/19/2014 12/19/2014 [facility] Refill [id number] 12/19/2014 12/19/2014 [facility] Unknown [id number] 03/23/2015 03/23/2015 [facility] Unknown [id number] 03/23/2015 03/23/2015 [facility] Unknown [id number] 03/23/2015 03/23/2015 [facility] Unknown [id number] 03/23/2015 03/23/2015 [facility] Unknown [id number] 03/23/2015 03/23/2015 [facility] Unknown [id number] 03/23/2015 03/23/2015 [facility] Unknown [id number] 03/23/2015 03/23/2015 [facility] Unknown [id number] 03/23/2015 03/23/2015 [facility] Unknown [id number] 03/23/2015 03/23/2015 [facility] Unknown [id number] 03/23/2015 03/23/2015 [facility] Unknown [id number] 03/23/2015 03/23/2015 [facility] med refill [id number] 06/07/2015 06/07/2015 [facility] med refill [id number] 06/07/2015 06/07/2015 [facility] med refill [id number] 06/07/2015 06/07/2015 [facility] med refill [id number] 06/07/2015 06/07/2015 [facility] med refill [id number] 06/07/2015 06/07/2015 [facility] med refill [id number] 06/07/2015 06/07/2015 [facility] med refill [id number] 06/07/2015 06/07/2015 [facility] med refill [id number] 06/07/2015 06/07/2015 [facility] med refill [id number] 06/07/2015 06/07/2015 [facility] med refill [id number] 06/07/2015 06/07/2015 [facility] med refill [id number] 06/07/2015 06/07/2015 [facility] Refill [id number] 06/18/2015 06/18/2015 [facility] Refill [id number] 06/18/2015 06/18/2015 [facility] Refill [id number] 06/18/2015 06/18/2015 [facility] Refill [id number] 06/18/2015 06/18/2015 [facility] Refill [id number] 06/18/2015 06/18/2015 [facility] Refill [id number] 06/18/2015 06/18/2015 [facility] Refill [id number] 06/18/2015 06/18/2015 [facility] Refill [id number] 06/18/2015 06/18/2015 [facility] Refill [id number] 06/18/2015 06/18/2015 [facility] Refill [id number] 06/18/2015 06/18/2015 [facility] RESULTS [id number] 08/13/2015 08/13/2015 [facility] RESULTS [id number] 08/13/2015 08/13/2015 [facility] RESULTS [id number] 08/13/2015 08/13/2015 [facility] RESULTS [id number] 08/13/2015 08/13/2015 [facility] RESULTS [id number] 08/13/2015 08/13/2015 [facility] RESULTS [id number] 08/13/2015 08/13/2015 [facility] RESULTS [id number] 08/13/2015 08/13/2015 [facility] RESULTS [id number] 08/13/2015 08/13/2015 [facility] RESULTS [id number] 08/13/2015 08/13/2015 [facility] Refill [id number] 08/14/2015 08/14/2015 [facility] [facility] Refill [id number] 08/14/2015 08/14/2015 [facility] Refill [id number] 08/14/2015 08/14/2015 [facility] Refill [id number] 08/14/2015 08/14/2015 [facility] Refill [id number] 08/14/2015 08/14/2015 [facility] Refill [id number] 08/14/2015 08/14/2015 [facility] Refill [id number] 08/14/2015 08/14/2015 [facility] Refill [id number] 08/14/2015 08/14/2015 [facility] Refill [id number] 08/14/2015 08/14/2015 [facility] Unknown [id number] 08/14/2015 08/14/2015 [facility] Unknown [id number] 08/14/2015 08/14/2015 [facility] Unknown [id number] 08/14/2015 08/14/2015 [facility] Unknown [id number] 08/14/2015 08/14/2015 [facility] Unknown [id number] 08/14/2015 08/14/2015 [facility] Unknown [id number] 08/14/2015 08/14/2015 [facility] Unknown [id number] 08/14/2015 08/14/2015 [facility] Unknown [id number] 08/14/2015 08/14/2015 [facility] Unknown [id number] 08/14/2015 08/14/2015 [facility] NATHAN)-UA [id number] 08/23/2015 08/23/2015 [facility] NATHAN)-UA [id number] 08/23/2015 08/23/2015 [facility] NATHAN)-UA [id number] 08/23/2015 08/23/2015 [facility] NATHAN)-UA [id number] 08/23/2015 08/23/2015 [facility] NATHAN)-UA [id number] 08/23/2015 08/23/2015 [facility] NATHAN)-UA [id number] 08/23/2015 08/23/2015 [facility] NVSCOTT)-UA [id number] 08/23/2015 08/23/2015 [facility] NATHAN)-UA [id number] 08/23/2015 08/23/2015 [facility] NVSCOTT)-UA [id number] 08/23/2015 08/23/2015 [facility] Refill [id number] 09/10/2015 09/10/2015 [facility] Refill [id number] 09/10/2015 09/10/2015 [facility] Refill [id number] 09/10/2015 09/10/2015 [facility] Refill [id number] 09/10/2015 09/10/2015 [facility] Refill [id number] 09/10/2015 09/10/2015 [facility] Refill [id number] 09/10/2015 09/10/2015 [facility] Refill [id number] 09/10/2015 09/10/2015 [facility] Refill [id number] 09/10/2015 09/10/2015 [facility] Refill [id number] 09/10/2015 09/10/2015 [facility] Unknown [id number] 09/11/2015 09/11/2015 [facility] Unknown [id number] 09/11/2015 09/11/2015 [facility] Unknown [id number] 09/11/2015 09/11/2015 [facility] Unknown [id number] 09/11/2015 09/11/2015 [facility] Unknown [id number] 09/11/2015 09/11/2015 [facility] Unknown [id number] 09/11/2015 09/11/2015 [facility] Unknown [id number] 09/11/2015 09/11/2015 [facility] Unknown [id number] 09/11/2015 09/11/2015 [facility] Unknown [id number] 09/11/2015 09/11/2015 [facility] Unknown [id number] 10/08/2015 10/08/2015 [facility] Unknown [id number] 10/08/2015 10/08/2015 [facility] Unknown [id number] 10/08/2015 10/08/2015 [facility] Unknown [id number] 10/08/2015 10/08/2015 [facility] Unknown [id number] 10/08/2015 10/08/2015 [facility] Unknown [id number] 10/08/2015 10/08/2015 [facility] Unknown [id number] 10/08/2015 10/08/2015 [facility] Unknown [id number] 10/08/2015 10/08/2015 [facility] Unknown [id number] 10/08/2015 10/08/2015 [facility] Unknown [id number] 10/09/2015 10/09/2015 [facility] Unknown [id number] 10/09/2015 10/09/2015 [facility] Unknown [id number] 10/09/2015 10/09/2015 [facility] Unknown [id number] 10/09/2015 10/09/2015 [facility] Unknown [id number] 10/09/2015 10/09/2015 [facility] Unknown [id number] 10/09/2015 10/09/2015 [facility] Unknown [id number] 10/09/2015 10/09/2015 [facility] Unknown [id number] 10/09/2015 10/09/2015 [facility] Unknown [id number] 10/09/2015 10/09/2015 [facility] Unknown [id number] 11/13/2015 11/13/2015 [facility] Unknown [id number] 11/13/2015 11/13/2015 [facility] Unknown [id number] 11/13/2015 11/13/2015 [facility] Unknown [id number] 11/13/2015 11/13/2015 [facility] Unknown [id number] 11/13/2015 11/13/2015 [facility] Unknown [id number] 11/13/2015 11/13/2015 [facility] Unknown [id number] 11/13/2015 11/13/2015 [facility] RF [id number] 01/07/2016 01/07/2016 [facility] RF [id number] 01/07/2016 01/07/2016 [facility] RF [id number] 01/07/2016 01/07/2016 [facility] RF [id number] 01/07/2016 01/07/2016 [facility] RF [id number] 01/07/2016 01/07/2016 [facility] RF [id number] 01/07/2016 01/07/2016 [facility] medication [id number] 03/25/2016 03/25/2016 [facility] medication [id number] 03/25/2016 03/25/2016 [facility] medication [id number] 03/25/2016 03/25/2016 [facility] medication [id number] 03/25/2016 03/25/2016 [facility] medication [id number] 03/25/2016 03/25/2016 [facility] [place] APPROVED- Rx Escitalopram 10 mg [id number] 04/18/2016 04/18/2016 [facility]- Rx Escitalopram 10 mg [id number] 04/18/2016 04/18/2016 [facility]- Rx Escitalopram 10 mg [id number] 04/18/2016 04/18/2016 [facility]- Rx Escitalopram 10 mg [id number] 04/18/2016 04/18/2016 [facility] Refill [id number] 06/19/2016 06/19/2016 [facility] Refill [id number] 06/19/2016 06/19/2016 [facility] Refill [id number] 06/19/2016 06/19/2016 [facility] Refill [id number] 06/24/2016 06/24/2016 [facility] Refill [id number] 06/24/2016 06/24/2016 [facility] Rx Zolpidem [id number] 06/30/2016 06/30/2016 [facility] Procedures No Data Provided for This Section Assessment and Plan No Data Provided for This Section Plan of Care No Data Provided for This Section Social History Social History Date Source Social History ElementQualifiersDate Reported Occupation: . Retired March 25, 2016 Last Colonoscopy: . never March 25, 2016 Depression Screening: . negative March 25, 2016 Ethnicity . Status , Is lithuanian your primary language? Yes March 25, 2016 [...] . Status: No March 25, 2016 03/25/2016 [facility] Family History Value Date Source QualifierDescriptionCommentDate [...]
[2019-08-12] MEDS ORDERED: ZOLPIDEM TARTRATE 10 MG TAB PO ONE (22:30)
[2019-08-12 23:00] VITALS: BP 115/53
[2019-08-12 23:01] VITALS: BP 115/53
[2019-08-12 23:07] VITALS: BP 115/53
[2019-08-12] MEDS: SODIUM CHLORIDE 0.9% 1000ML 1,000 ML IV SCH (23:35)
--- NOTE | 2019-08-12 23:37 | NUR ---
RECEIVED PATIENT AAOX3, RESP EVEN AND UNLABORED, DENIES PAIN, AMB STEADY GAIT, SKIN INTACT. REFUSED JOSIAH HOSE. UPDATED PATIENT ON PLAN OF CARE. AT THIS TIME NO NEEDS VOICED. BED LOCKED AND IN LOWEST POSITION, CALL LIGHT WITHIN EASY REACH. WILL CONTINUE TO MONITOR.
[2019-08-13] VITALS (7 sets, daily range): BP systolic 93–128; BP diastolic 46–58
[2019-08-13 00:42] LABS: HEMATOCRIT 30.5 % (34.2-44.1); HEMOGLOBIN 10.1 g/dL (12.0-16.0)
--- NOTE | 2019-08-13 01:30 | NUR ---
dr arias rounding. continue monitoring h/h.
[2019-08-13 05:58] LABS: HEMATOCRIT 27.6 % (34.2-44.1)
--- NOTE | 2019-08-13 07:04 | NUR ---
PT ASLEEP RESP EVEN AND UNLABORED AT THIS TIME NO DISTRESS NOTED, PT EASILY AROUSED AT THIS TIME, CALL LIGHT IN REACH, WILL CONT TO MONITOR.
[2019-08-13] MEDS ORDERED: SERTRALINE HCL 50 MG TAB PO PRN (07:45)
[2019-08-13] MEDS ORDERED: ONDANSETRON HCL INJ 2MG/ML 2ML 2 MG/ML VIAL IV PRN (07:45)
[2019-08-13] MEDS ORDERED: ACETAMINOPHEN/CODEINE 300MG - 30MG TAB PO PRN (07:45)
[2019-08-13] MEDS ORDERED: HYDRALAZINE HCL 20 MG/ML VIAL IV PRN (07:45)
[2019-08-13] MEDS ORDERED: ACETAMINOPHEN 325 MG TAB PO PRN (07:45)
[2019-08-13] MEDS ORDERED: ZOLPIDEM TARTRATE 10 MG TAB PO PRN (07:45)
[2019-08-13] MEDS: PANTOPRAZOLE SOD 40 MG TABEC PO SCH (08:28)
[2019-08-13] MEDS: SODIUM CHLORIDE 0.9% 1000ML 1,000 ML IV SCH ×2 (08:28→17:43)
[2019-08-13] MEDS: HYDROCORTISONE ACETATE 25 MG/SUPP.RECT SUPP RC SCH ×3 (08:36→20:48)
--- NOTE | 2019-08-13 10:00 | NUR ---
URINE SENT TO LAB.
[2019-08-13 10:14] LABS: BILIRUBIN,URINE NEGATIVE (NEGATIVE); CLARITY,URINE CLEAR (CLEAR); COLOR,URINE YELLOW (YELLOW); KETONES,URINE NEGATIVE (NEGATIVE); LEUKOCYTE ESTERASE ,URINE TRACE (NEGATIVE); NITRITE,URINE NEGATIVE (NEGATIVE); PROTEIN,URINE DIPSTICK NEGATIVE (NEGATIVE); URINE UROBILINOGEN 0.2 mg/dL (0.2 - 1)
[2019-08-13 11:06] LABS: BACTERIA,URINE FEW /HPF; EPITHELIAL CELLS,URINE FEW /LPF; RBC,URINE 0-5 /HPF (0-5); WBC,URINE (MAN) 0-5 /HPF (0-5)
[2019-08-13 12:06] LABS: HEMATOCRIT 28.2 % (34.2-44.1); HEMOGLOBIN 9.3 g/dL (12.0-16.0)
[2019-08-13] MEDS: ATORVASTATIN 10 MG TAB PO SCH (12:10)
[2019-08-13 17:55] LABS: HEMATOCRIT 27.8 % (34.2-44.1); HEMOGLOBIN 9.2 g/dL (12.0-16.0)
[2019-08-13 18:31] LABS: FERRITIN 91.85 ng/mL (4.63-204.00)
--- NOTE | 2019-08-13 19:17 | NUR ---
report given to oncoming nurse, pt stable at this time.
[2019-08-13 19:29] LABS: FOLATE 11.8 ng/mL (7.0-15.4)
--- NOTE | 2019-08-13 20:48 | NUR ---
patient previously refused 1700 dose of Anusol. At this time patient changed her mind. Anusol administered, and documented as unscheduled med dose.
[2019-08-14] VITALS: BP 132/60
[2019-08-14 01:00] LABS: BASOPHILS % 0.3 % (0.0-1.0); EOSINOPHILS # (AUTO) 0.2 (0.0-0.4); EOSINOPHILS % 2.3 % (0.0-6.0); HEMATOCRIT 25.6 % (34.2-44.1); HEMOGLOBIN 8.3 g/dL (12.0-16.0); LYMPHOCYTES # (AUTO) 2.7 (1.0-3.2); LYMPHOCYTES % 39.4 % (18.0-39.1); MEAN CORPUSCULAR HEMOGLOBIN 30.6 pg (28-32); MEAN CORPUSCULAR HGB CONC 32.4 g/dL (31-35); MEAN CORPUSCULAR VOLUME 94.5 fL (81-99); MONOCYTES # (AUTO) 0.4 (0.2-0.8); MONOCYTES % 5.5 % (4.4-11.3); NEUTROPHILS # (AUTO) 3.6 (2.1-6.9); NEUTROPHILS % 51.9 % (38.7-80.0); PLATELET COUNT 182 x10e3/uL (140-360); RED BLOOD COUNT 2.71 x10e6/uL (3.6-5.1); RED CELL DISTRIBUTION WIDTH 13.4 % (11.7-14.4)
[2019-08-14 01:18] LABS: ANION GAP 10.4 mmol/L (8-16); BLOOD UREA NITROGEN 5 mg/dL (7-26); BUN/CREATININE RATIO 6 (6-25); CALCIUM 8.3 mg/dL (8.4-10.2); CARBON DIOXIDE 22 mmol/L (22-29); CHLORIDE 114 mmol/L (98-107); CREATININE, SERUM 0.77 mg/dL (0.57-1.11); EST GLOMERULAR FILTRATION RATE > 60 ML/MIN (60-); GLUCOSE 92 mg/dL (74-118); POTASSIUM 3.4 mmol/L (3.5-5.1); SODIUM 143 mmol/L (136-145)
[2019-08-14 02:15] LABS: B-TYPE NATRIURETIC PEPTIDE2 15.7 pg/mL (0-100)
[2019-08-14] MEDS: SODIUM CHLORIDE 0.9% 1000ML 1,000 ML IV SCH (03:22)
[2019-08-14 04:00] VITALS: BP 120/57
[2019-08-14 04:49] LABS: THYROID STIMULATING HORMONE 1.098 uIU/mL (0.350-4.940)
[2019-08-14] MEDS ORDERED: LEVOTHYROXINE SODIUM 100 MCG TAB PO ONE (06:00)
[2019-08-14 06:35] LABS: HEMATOCRIT 24.7 % (34.2-44.1); HEMOGLOBIN 8.1 g/dL (12.0-16.0)
--- NOTE | 2019-08-14 07:12 | NUR ---
PT ASLEEP RESP EVEN AND UNLABORED AT THIS TIME NO DISTRESS NOTED, NO /O PAIN WHEN ASKED, PT EASILY AROUSED AT THIS TIME, CALL LIGHT IN REACH, WILL CONT TO MONITOR.
[2019-08-14 07:51] VITALS: BP 109/57
[2019-08-14] MEDS ORDERED: POTASSIUM CHLORIDE 20 MEQ TAB CR PO STA (07:56)
[2019-08-14] MEDS ORDERED: FERROUS SULFAT325 MG PO (07:59)
[2019-08-14] MEDS ORDERED: ASCORBIC ACID500 M2 PO (07:59)
[2019-08-14] MEDS ORDERED: OMEPRAZOLE40 MG PO (07:59)
[2019-08-14] MEDS ORDERED: ANUCORT-HC25 MG RC (08:10)
[2019-08-14 08:25] VITALS: BP 109/57
[2019-08-14] MEDS: PANTOPRAZOLE SOD 40 MG TABEC PO SCH (08:44)
[2019-08-14] MEDS ORDERED: ASCORBIC ACID 500 MG TAB PO SCH (09:00)
[2019-08-14] MEDS: HYDROCORTISONE ACETATE 25 MG/SUPP.RECT SUPP RC SCH (09:15)
[2019-08-14] MEDS: ATORVASTATIN 10 MG TAB PO SCH (11:51)
[2019-08-14 11:58] LABS: HEMATOCRIT 26.8 % (34.2-44.1); HEMOGLOBIN 8.8 g/dL (12.0-16.0)
[2019-08-14 13:30] VITALS: BP 125/70
--- NOTE | 2019-08-14 16:23 | NUR ---
pt discharged home, pt given prescriptions and follow up information , iv site removed no swelling no redness to site.
[2019-08-14] MEDS ORDERED: FERROUS SULFATE 325 MG TAB PO SCH (17:00)
--- NOTE | 2019-08-16 17:31 | Discharge Summary ---
ADMISSION DIAGNOSES: Acute blood loss anemia, secondary to gastrointestinal bleed. Hypothyroidism, hyperlipidemia, morbid obesity. DISCHARGE DIAGNOSES: Acute blood loss anemia, secondary to gastrointestinal bleed. Hypothyroidism, hyperlipidemia, morbid obesity. HISTORY: Hypothyroidism, hyperlipidemia, and anxiety. SURGICAL HISTORY: Cholecystectomy, bilateral breast reduction, and . FAMILY HISTORY: The patient's mom had a stroke. The patient's dad had a heart attack. SOCIAL HISTORY: Noncontributory. HOSPITAL COURSE: A 69-year-old female admits with rectal bleeding that began yesterday. She had an EGD and colonoscopy with Dr. Thornton on 06/02/2019. She found gastritis, esophagitis on the EGD and polyps on the colonoscopy. She denies nausea, vomiting, diarrhea, and abdominal pain. Bleeding stopped once in the ER. On admission, hemoglobin was 12.3, it dropped to 9. She was started on Anusol b.i.d. Dr. Thornton was reconsulted. Chest x-ray showed prominent convexity to the left without pulmonary decompensation. CT of the abdomen and pelvis showed no acute abnormality. Hemoglobin remained stable, so she was discharged home per GI recommendation. She will follow up with primary care in 1 to 2 days. The patient understands discharge instructions and agrees to plan. Vital signs are stable. The patient is afebrile. Dictated by Nayeli Malagon NP MD PORFIRIO Reynolds/EVERARDO /[id number]
== END 2019-08-14 15:32 | disposition home or self-care (01) | DRG 378 ==
LOC: ER 18:01 → ERHOLD 21:32 → MED/SURG 22:39
PROVIDERS: ADMIT Internal Medicine; ATTEND Internal Medicine
DX: K92.2 Gastrointestinal hemorrhage, unspecified (principal); D62 Acute posthemorrhagic anemia; Z68.41 Body mass index [BMI] 40.0-44.9, adult; E78.5 Hyperlipidemia, unspecified; E03.9 Hypothyroidism, unspecified; Z90.49 Acquired absence of other specified parts of digestive tract; K29.70 Gastritis, unspecified, without bleeding; K20.9 Esophagitis, unspecified; F41.9 Anxiety disorder, unspecified; Z82.3 Family history of stroke; Z82.49 Family history of ischemic heart disease and other diseases of the circulatory system; E66.01 Morbid (severe) obesity due to excess calories; K64.8 Other hemorrhoids
CPT/HCPCS: 36415; 71045; 74177; 80048; 80053; 81001; 82550; 82553; 82607; 82728; 82746; 83036; 83540; 83690; 83880; 84443; 84466; 84484; 85014; 85018; 85025; 85045; 85610; 85730; 87086; 93005; 96374; 99284; J2405; J7030; Q9967